=== PATIENT | female | born 1975 | race Caucasian/White ===

== ENCOUNTER 2016-11-17 20:03 | Outpatient (CLI) | payer MEDICAID ==
[~2016-11-17 20:03] MED LIST: ESCI20TA2; QUET50TA
== END 2016-11-18 06:00 | disposition home or self-care (01) ==
LOC: SLEEP 20:03
PROVIDERS: ATTEND Internal Medicine Cardiovascular Disease
DX: G47.33 Obstructive sleep apnea (adult) (pediatric) (principal); I10 Essential (primary) hypertension; R06.83 Snoring
CPT/HCPCS: 95810

== ENCOUNTER → 2017-01-04 | Outpatient (CLI) | payer MEDICAID ==
--- NOTE | 2017-01-04 13:29 | Diagnostic Imaging Report ---
INDICATION: Shortness of breath with wheezing. FINDINGS: There is some discoid atelectasis in the lingula and left lower lobe. The right lung is clear. The heart is not enlarged. There is no air trapping. No hilar adenopathy. No pulmonary edema. IMPRESSION: Mild discoid atelectasis in the left lower lobe and lingula. Dictated by: Dictated on workstation # [id number]
== END ==
LOC: RAD 12:38
PROVIDERS: ATTEND Nurse Practitioner Family
DX: G47.34 Idiopathic sleep related nonobstructive alveolar hypoventilation (principal); R06.02 Shortness of breath; E66.9 Obesity, unspecified; J30.2 Other seasonal allergic rhinitis; Z72.0 Tobacco use
CPT/HCPCS: 71020

== ENCOUNTER → 2017-01-18 | Outpatient (CLI) | payer MEDICAID | LOC: RT 12:47 | PROVIDERS: ATTEND Nurse Practitioner Family | DX: J30.2 Other seasonal allergic rhinitis (principal); R06.02 Shortness of breath; G47.34 Idiopathic sleep related nonobstructive alveolar hypoventilation; Z72.0 Tobacco use | CPT/HCPCS: 94060; 94726; 94729 ==

== ENCOUNTER → 2017-02-21 | Outpatient (CLI) | payer MEDICAID ==
--- NOTE | 2017-02-21 13:24 | Diagnostic Imaging Report ---
Pelvic ultrasound. INDICATION: Pelvic pain. The previous pelvic ultrasound exam of 08/18/2015, failed to show any sign of an acute pelvic abnormality. The left ovary was not visualized on the prior exam, however. On this exam the uterus is nongravid and not enlarged measuring 8.1 x 5.5 x 4.7 cm. The endometrial lining is thickened measuring 11. 0 mm (normal 5.0 mm or less.) This finding is nonspecific however. Correlation with the patient's menstrual cycle would be recommended. There is no focal mass involving the uterus to suggest a fibroid. Neither ovary was identified as the adnexa were obscured by bowel gas. There is no mass or free fluid collection noted. IMPRESSION: 1. There is no evidence for an acute pelvic abnormality, but the adnexa were not well visualized due to overlying bowel gas. 2. If clinical concern regarding an underlying abnormality persists, then CT of the abdomen/pelvis would be recommended for further study. Dictated by: Dictated on workstation # [id number]
== END ==
LOC: RAD 10:59
PROVIDERS: ATTEND Obstetrics & Gynecology
DX: R10.2 Pelvic and perineal pain (principal)
CPT/HCPCS: 76830; 76856

== ENCOUNTER → 2017-03-08 | Outpatient (CLI) | payer MEDICAID ==
--- NOTE | 2017-03-08 17:51 | Diagnostic Imaging Report ---
EXAM: US VENOUS LOWER EXT LT INDICATION: Left leg pain. COMPARISON: None. TECHNIQUE: Duplex, morales-scale and color-flow imaging of the left lower extremity venous system was performed FINDINGS: The left common femoral vein, superficial femoral vein, profunda femoris, and popliteal veins are normal. These vessels show normal compressibility, color flow, and doppler augmentation. The deep calf veins demonstrate no distinct intraluminal thrombus where seen. IMPRESSION: Negative venous Doppler of the left lower extremity. Dictated by: Dictated on workstation # [id number]
== END ==
LOC: RAD 17:00
PROVIDERS: ATTEND Nurse Practitioner Family
DX: M79.605 Pain in left leg (principal)

== ENCOUNTER → 2017-05-01 | Outpatient (CLI) | payer MEDICAID ==
[2017-05-01 12:00] LABS: BASOPHILS % (AUTO) 0 % (0-10); EOSINOPHILS # (AUTO) 0.1 10^3/uL (0.0-0.3); EOSINOPHILS % (AUTO) 1 % (0-10); LYMPHOCYTES % (AUTO) 44 % (12-44); MEAN CORPUSCULAR HEMOGLOBIN 31 PG (25-34); MEAN CORPUSCULAR HGB CONC 34 G/DL (32-36); MEAN CORPUSCULAR VOLUME 90 FL (80-99); MEAN PLATELET VOLUME 10.1 FL (7.4-10.4); MONOCYTES # (AUTO) 0.6 X 10^3 (0.0-1.0); MONOCYTES % (AUTO) 6 % (0-12); NEUTROPHILS # (AUTO) 4.5 X 10^3 (1.8-7.8); NEUTROPHILS % (AUTO) 49 % (42-75); PLATELET COUNT 263 10^3/uL (130-400); RED BLOOD COUNT 4.83 10^6/uL (4.35-5.85); RED CELL DISTRIBUTION WIDTH 14.2 % (10.0-14.5); WHITE BLOOD COUNT 9.1 10^3/uL (4.3-11.0)
--- NOTE | 2017-05-01 12:19 | Diagnostic Imaging Report ---
INDICATION: Bronchitis. COMPARISON: 01/04/2017. FINDINGS: Frontal and lateral radiographic views of the chest were obtained and demonstrate normal cardiac silhouette and pulmonary vasculature. Lungs show low inspiratory volumes. There is bilateral perihilar platelike atelectasis. No focal alveolar consolidation, large effusion, nor pneumothorax is identified. Bony structures show no gross acute abnormalities. IMPRESSION: 1. Low lung volumes with bilateral perihilar plate-like atelectasis. 2. No evidence of failure or focal infiltrate. Dictated by: Dictated on workstation # [id number]
== END ==
LOC: RAD 11:24
PROVIDERS: ATTEND Nurse Practitioner Family
DX: J98.11 Atelectasis (principal); R06.02 Shortness of breath
CPT/HCPCS: 36415; 71020; 85025

== ENCOUNTER → 2017-07-19 | Outpatient (CLI) | payer MEDICAID ==
--- NOTE | 2017-07-19 12:05 | Diagnostic Imaging Report ---
PROCEDURE: US Thyroid. TECHNIQUE: Multiple real-time grayscale images were obtained of the thyroid in various projections. INDICATION: Thyroid nodules. No prior studies are available for comparison. FINDINGS: The right lobe of the thyroid measures 5.0 x 2.4 x 2.5 cm and the left lobe measures 4.6 x 1.7 x 1.8 cm. There are multiple, rounded solid masses within both lobes of the thyroid gland. Largest mass on the left is in the lower pole measuring 1.9 x 1.1 x 1.2 cm. The mass on the right measures 3.8 x 2.3 x 2.0 cm, contains mixed solid and cystic components. There appeared to be calcifications present as well. The isthmus is 6 mm in thickness. IMPRESSION: Multiple bilateral thyroid nodules. The dominant mass is located on the right, as described. Fine-needle aspiration could be performed. Dictated by: Dictated on workstation # [id number]
== END ==
LOC: RAD 10:28
PROVIDERS: ATTEND Nurse Practitioner Family
DX: E04.2 Nontoxic multinodular goiter (principal)
CPT/HCPCS: 76536

== ENCOUNTER → 2017-08-05 | Outpatient (CLI) | payer MEDICAID ==
[~2017-08-05] VITALS: Ht 157.5 cm; Wt 89.8 kg
[~2017-08-05] MED LIST changes: +LIDOCAINE 1% INJ 20 ML (XYLOCAINE) VIAL INJ ONE; +LIDOCAINE 1% INJ 50 ML (XYLOCAINE) VIAL ONE
[2017-08-05 10:20] VITALS: BP 121/74
[2017-08-05 10:44] VITALS: BP 118/74
--- NOTE | 2017-08-05 12:30 | Diagnostic Imaging Report ---
INDICATION: Right lobe thyroid nodule. The patient presents for fine needle aspiration. TECHNIQUE: The patient was brought to the procedure room and placed on the table in the supine position. Ultrasound imaging over the right neck was performed to evaluate for an appropriate entry site. The right neck was then prepped and draped in the usual sterile fashion and a small amount of 1% lidocaine was utilized for local anesthesia. A total of three passes was made with a 25-gauge needle into the dominant solid mass in the right lobe of the thyroid gland. Fine needle aspiration was performed. Hemostasis was obtained using manual compression. The patient tolerated the procedure well and left the Department in stable condition. IMPRESSION: Successful ultrasound-guided fine-needle aspiration of the solid dominant nodule in the right lobe of the thyroid gland. The Pathology results are currently pending. Dictated by: Dictated on workstation # [id number]
== END ==
LOC: RAD 09:57
PROVIDERS: ATTEND Nurse Practitioner Family
DX: E04.1 Nontoxic single thyroid nodule (principal)
CPT/HCPCS: 76942

== ENCOUNTER → 2017-11-06 | Outpatient (CLI) | payer MEDICAID ==
[~2017-11-06] MED LIST changes: -LIDOCAINE 1% INJ 20 ML (XYLOCAINE) VIAL INJ ONE; -LIDOCAINE 1% INJ 50 ML (XYLOCAINE) VIAL ONE
== END ==
LOC: CARD 10:16
PROVIDERS: ATTEND Physician Assistant
DX: R06.09 Other forms of dyspnea (principal); I10 Essential (primary) hypertension; E78.2 Mixed hyperlipidemia; R51 Headache; N80.9 Endometriosis, unspecified
CPT/HCPCS: 93017

== ENCOUNTER 2017-12-26 13:26 | Outpatient (CLI) | payer MEDICAID ==
[~2017-12-26] VITALS: Ht 157.5 cm; Wt 89.4 kg
[2017-12-26 13:47] VITALS: BP 134/88
[2017-12-26 14:24] LABS: BASOPHILS % (AUTO) 0 % (0-10); EOSINOPHILS # (AUTO) 0.1 10^3/uL (0.0-0.3); EOSINOPHILS % (AUTO) 1 % (0-10); HEMATOCRIT 40 % (35-52); HEMOGLOBIN 14.4 G/DL (11.5-16.0); LYMPHOCYTES # (AUTO) 3.2 X 10^3 (1.0-4.0); LYMPHOCYTES % (AUTO) 35 % (12-44); MEAN CORPUSCULAR HEMOGLOBIN 32 PG (25-34); MEAN CORPUSCULAR HGB CONC 36 G/DL (32-36); MEAN CORPUSCULAR VOLUME 89 FL (80-99); MEAN PLATELET VOLUME 10.5 FL (7.4-10.4); MONOCYTES # (AUTO) 0.4 X 10^3 (0.0-1.0); MONOCYTES % (AUTO) 5 % (0-12); NEUTROPHILS # (AUTO) 5.5 X 10^3 (1.8-7.8); NEUTROPHILS % (AUTO) 60 % (42-75); PLATELET COUNT 252 10^3/uL (130-400); RED BLOOD COUNT 4.51 10^6/uL (4.35-5.85); RED CELL DISTRIBUTION WIDTH 13.8 % (10.0-14.5); WHITE BLOOD COUNT 9.3 10^3/uL (4.3-11.0)
[2017-12-26 14:26] LABS: BILIRUBIN,URINE NEGATIVE (NEGATIVE); CLARITY,URINE CLEAR; COLOR,URINE YELLOW; GLUCOSE, URINE (UA) NEGATIVE (NEGATIVE); KETONES,URINE NEGATIVE (NEGATIVE); LEUKOCYTE ESTERASE ,URINE 1+ (NEGATIVE); NITRITE,URINE NEGATIVE (NEGATIVE); PH,URINE 6 (5-9); PROTEIN,URINE 1+ (NEGATIVE); UROBILINOGEN,URINE NORMAL (NORMAL)
[2017-12-26] MEDS ORDERED: CETI10TA17 PO (14:34)
[2017-12-26] MEDS ORDERED: NF-NORETH5 PO (14:34)
[2017-12-26] MEDS ORDERED: TOPI100T11 PO (14:34)
[2017-12-26] MEDS ORDERED: MONT10TA24 PO (14:34)
[2017-12-26] MEDS ORDERED: CLOP75TA28 PO (14:34)
[2017-12-26] MEDS ORDERED: TRAM50TA2 PO (14:34)
[2017-12-26] MEDS ORDERED: PRAZ1CAP2 PO (14:34)
[2017-12-26] MEDS ORDERED: DULO60CA58 PO (14:34)
[2017-12-26] MEDS ORDERED: ROPI2TAB4 PO (14:34)
[2017-12-26 14:35] LABS: BACTERIA,URINE LARGE /HPF; WBC,URINE 0-2 /HPF
[2017-12-26 14:49] LABS: PROTHROMBIN TIME PATIENT 13.1 SEC (12.2-14.7)
[2017-12-31] MEDS ORDERED: SIME80TA16 PO (16:18)
[2017-12-31] MEDS ORDERED: IBUP-844 PO (16:18)
[2017-12-31] MEDS ORDERED: MAG30ORA2 PO (16:18)
[2017-12-31] MEDS ORDERED: HYDR-34 PO (16:18)
[2017-12-31] MEDS ORDERED: DOCU100C37 PO (16:18)
== END 2017-12-26 14:15 | disposition home or self-care (01) ==
LOC: PREOP 13:26
PROVIDERS: ATTEND Obstetrics & Gynecology
DX: Z01.812 Encounter for preprocedural laboratory examination (principal); Z11.2 Encounter for screening for other bacterial diseases
CPT/HCPCS: 36415; 81000; 85025; 85610; 86850; 86900; 86901; 87081

== ENCOUNTER 2017-12-31 06:05 | Day surgery (SDC) | payer MEDICAID ==
[~2017-12-31] VITALS: Ht 157.5 cm; Wt 89.4 kg
[~2017-12-31 06:05] MED LIST changes: +CETI10TA17 PO; +CLOP75TA28 PO; +DULO60CA58 PO; +MONT10TA24 PO; +NF-NORETH5 PO; +PRAZ1CAP2 PO; +ROPI2TAB4 PO; +TOPI100T11 PO; +TRAM50TA2 PO
--- OUTSIDE RECORDS SUMMARY | 2017-12-31 06:09 | XMS REPORT ---
Author Author TACO CHEUNG [facility] Address [address] [place] [address] Care Team Providers Care Handle Maker Name Role Phone TACO CHEUNG Unavailable PROBLEMS Type Condition ICD9-CM Code WJB76-SC Code Onset Dates Condition Status SNOMED Code Problem Lumbar back pain M54.5 Active 950848607 Problem Tobacco use Z72.0 Active 635612475 Problem Hot flashes N95.1 Active 816096378 Problem Dyspnea, unspecified R06.00 Active 317039728 Problem Mixed hyperlipidemia E78.2 Active 520632884 Problem Essential hypertension I10 Active 76967808 Problem Headache, chronic daily R51 Active 296532323 Problem Multiple thyroid nodules E04.2 Active 138105674 Problem Coronary artery disease involving makah coronary artery of makah heart without angina pectoris I25.10 Active 1149473758164 Problem BMI 35.0-35.9,adult Z68.35 Active 352247613 Problem History of endometriosis Z87.42 Active 809864611 Problem Dysmenorrhea N94.6 Active 746703399 Problem Chronic headache R51 Active 047051382 ALLERGIES No Information ENCOUNTERS Encounter Location Date Diagnosis [place] [address] [address] Sep, [place] [id number] [place] [id number] [place] [address] Aug, Multiple thyroid nodules E04.2 [place] [address] [place] [address]- 9310 Jul, Multiple thyroid nodules E04.2 [place] [address] [place] [address]- 1657 Jun, H/O cerebral artery stenosis Z86.79 and Multiple thyroid nodules E04.2 [place] [address] [place] [address]70[address]- [address] May, [facility] [address] [place] [id number] [place] [address] Feb, Left leg pain M79.605 [place] [address] [place] [id number] [place] [address]- [address]235 Jan, [place] [address] [address] Jan, Dysmenorrhea N94.6 and Coronary artery disease involving makah coronary artery of makah heart without angina pectoris I25.10 [facility] [place] [address] [address] Sep, Brown recluse spider bite, accidental or unintentional, initial encounter T63.331A [address] [address] Nov, Tobacco abuse Z72.0 ; Essential hypertension I10 ; Mixed hyperlipidemia E78.2 ; Headache, chronic daily R51 ; Weakness R53.1 ; Lumbar back pain M54.5 and Ingrowing toenail with infection L60.0 [place] [id number] [place] [address]78- 3408 Aug, Tobacco abuse Z72.0 ; Essential hypertension I10 ; Mixed hyperlipidemia E78.2 ; Headache, chronic daily R51 ; Weakness R53.1 ; Dyspnea, unspecified R06.00 and Lumbar back pain M54.5 [place] [id number] [place] [address] 97289- 1187 Aug, Well woman exam Z01.419 ; Encounter for immunization Z23 ; Encounter for screening for malignant neoplasm of cervix Z12.4 ; Essential hypertension I10 ; Hypercholesteremia E78.0 ; History of endometriosis Z87.42 ; BMI 35.0-35.9,adult Z68.35 ; Other fatigue R53.83 ; Chills (without fever) R68.83 ; Chronic headache R51 ; Pelvic pain R10.2 ; Chest pain, unspecified R07.9 ; Alternating constipation and diarrhea R19.8 ; Hot flashes N95.1 ; Abdominal bloating R14.0 ; Uterine tenderness N94.9 ; Tobacco use Z72.0 ; History of fall Z91.81 and History of dyspareunia in female Z87.42 [place] [address] [place] [id number] [place] [address]42- 17[address] Jul, Essential hypertension I10 ; Mixed hyperlipidemia E78.2 ; Headache, chronic daily R51 ; Weakness R53.1 ; Dyspnea, unspecified R06.00 ; Lumbar back pain M54.5 and Oral contraceptive pill surveillance Z30.41 [place] [address] [address]40[address]- [address] Jun, Essential hypertension I10 and Weakness R53.1 [place] [address] [address]- [address] Jun, Essential hypertension I10 ; Mixed hyperlipidemia E78.2 ; Headache, chronic daily R51 ; Weakness R53.1 and Dyspnea, unspecified R06.00 [place] [address] [address] May, [place] [address] [place] [id number] Feb, Paresthesia of upper and lower extremities of both sides 782.0 and Headache 784.0 [place] [address] [address] Jan, [place] [address] [address] Jan, Paresthesia of upper and lower extremities of both sides 782.0 and Headache 784.0 [place] [address] [address]- [address] Jan, Hyperlipidemia 272.4 ; Essential hypertension, benign 401.1 ; Headache 784.0 ; Depression 311 and Diarrhea 787.91 [place] [address] [place] [address] Jan, [facility] [address] [place] [id number] [place] [address] 60[address]- [address]99 Jan, Hyperlipidemia 272.4 ; Essential hypertension, benign 401.1 ; Headache 784.0 ; Depression 311 and Diarrhea 787.91 [facility] [address] [place] [id number] [place] [address] 92709- 8226 Dec, Irregular menses 626.4 [facility] [address] [place] [id number] [place] [address] 35862- 4915 Dec, Hyperlipidemia 272.4 ; Essential hypertension, benign 401.1 ; Headache 784.0 ; Depression 311 and Irregular menstrual cycle 626.4 [facility] [address] [place] [id number] [place] [address] 56084- 5697 Nov, Headache 784.0 ; Posttraumatic stress disorder 309.81 ; Encounter for long-term (current) use of other medications V58.69 ; Edema 782.3 and Fatigue 780.79 [facility] [address] [place] [id number] [place] [address] 22128- 1827 Nov, [facility] [address] [place] [id number] [place] [address] 26405- 6609 October, [facility] [address] [place] [id number] [place] [address] 53336- 0251 Sep, [facility] [address] [place] [id number] [place] [address] 74279- 4281 Sep, [facility] [address] [place] [id number] [place] [address] 59657- 8191 Jun, [facility] [address] [place] [id number] [place] [address] 519839- 6120 Jun, [facility] [address] [place] [id number] [place] [address] 142197- 9776 Jun, [facility] [address] [place] [id number] [place] [address] 30408- 6257 Jun, [facility] [place] [facility] [address] [id number] [place] [address] 15 May, 2014 [facility] [place] [facility] [address] [id number] [place] [address]- [address] May, [facility] [place] [facility] [address] [id number] [place] [address]- 8206 15 May, 2014 [facility] [place] [facility] [address] [id number] [place] [address]- 6936 May, [facility] [place] [facility] [address] [id number] [place] [address]- 1660 May, [facility] [place] [facility] [address] [id number] [place] [address]- 8547 May, [facility] [place] [facility] [address] [id number] [place] [address]- 2568 Apr, [facility] [place] [facility] [address] [id number] [place] [address]- 3130 Apr, [facility] [place] [facility] [address] [id number] [place] [address]- 5071 Jan, [facility] [place] [facility] [address] [id number] [place] [address]- 4439 Jan, [facility] [place] [facility] [address] [id number] [place] [address]- 3027 Jan, [facility] [place] [facility] [address] [id number] [place] [address]- 6353 Jan, [facility] [place] [facility] [address] [id number] [place] [address]- 1941 Jan, [facility] [place] [facility] [address] [id number] [place] [address] Dec, [facility] [place] [facility] [address] [id number] [place] [address] Dec, [facility] [place] [facility] [address] [id number] [place] [address]- 9691 Dec, [facility] [address] [id number] [place] [address]- 8082 Dec, [facility] [place] [facility] [address] [id number] [place] [address]- 8698 October, [facility] [place] [facility] [address] [id number] [place] [address]- 1063 October, [facility] [place] [facility] [address] [id number] [place] [address]- 1438 October, [facility] [place] [facility] [address] [id number] [place] [address]- 5711 October, [facility] [place] [facility] [address] [id number] [place] [address]- 5635 October, [facility] [place] [facility] [address] [id number] [place] [address]- 7698 October, [facility] [place] [facility] [address] [id number] [place] [address]- 5668 October, [facility] [place] [facility] [address] [id number] [place] [address]- 3079 October, [facility] [place] [facility] [address] [id number] [place] [address]- 9568 Sep, [facility] [place] [facility] [address] [id number] [place] [address]- 9574 Sep, [facility] [place] [facility] [address] [id number] [place] [address]- 0556 Sep, [facility] [place] [facility] [address] [id number] [place] [address]- 5124 Sep, [facility] [place] [facility] [address] [id number] [place] [address]- 9211 Sep, [facility] [place] [facility] [address] [id number] [place] [address]- 9296 Sep, [facility] [place] [facility] [address] [place] [id number] [address] Aug, [facility] [address] [address] Aug, [facility] [address] [address]- 14[address] Aug, [facility] [address] [address]- 9[address] Aug, [facility] [address] [address]- 160[address] Aug, [facility] [address] [address]- 9760 Aug, [facility] [address] [address]- [address] Aug, [facility] [address] [address]- [address] Aug, IMMUNIZATIONS No Known Immunizations SOCIAL HISTORY Never Assessed REASON FOR VISIT Update Med List/lab deferred PLAN OF CARE VITAL SIGNS MEDICATIONS Medication Instructions Dosage Frequency Start Date End Date Duration Status Fish Oil 1000 MG Orally bid 2 capsule 12h 30 day(s) Active Multi Vitamin Daily Orally Once a day 1 tablet 24h Active Atorvastatin Calcium 40 mg Orally Once a day 1 tablet 24h Active Arnuity Ellipta 100 MCG/ACT Inhalation Once a day 1 puff 24h Active Sertraline HCl 100 MG Orally at bedtime 2 tablets Active ProAir HFA 108 (90 Base) MCG/ACT Inhalation every 4 hrs 2 puffs as needed 4h Active Tramadol HCl 50 mg Orally 3 times a day,PRN 1 tablet as needed Active Topamax 100 MG Orally Twice a day 1 tablet 12h Active BuPROPion HCl 150 MG Orally 2 times a day 1 tablet 12h Active Oxygen Active Ropinirole HCl 2 MG Orally three times a day 1 tablet 8h Active Prazosin HCl 2 MG Orally Once a day 1 capsule at bedtime 24h Active RESULTS No Results PROCEDURES No Known procedures INSTRUCTIONS MEDICATIONS ADMINISTERED No Known Medications MEDICAL (GENERAL) HISTORY Type Description Date Medical History HYPERTENSION Medical History HYPERLIPIDEMIA Medical History HEADACHE SYNDROMES Migraine Medical History PSYCHIATRIC DISORDERS- BIPOLAR, PTSD Medical History FX RIGHT KNEE CAP Medical History carotid artery stenosis--mild--dx by Dr. Garcias in 2016 Medical History 06/18/2017--normal echocardiogram Medical History Thyroid fine Needle Aspiration Consistent with benign thyroid nodule w cystic degeneration Surgical History SURGICAL LYSIS OF INTESTINAL ADHESIONS Surgical History APPENDECTOMY Surgical History SECTION X1 Hospitalization History surgeries Hospitalization History sleep study Hospitalization History migraine/ possible mini stroke 06/2017
--- OUTSIDE RECORDS SUMMARY | 2017-12-31 06:09 | XMS REPORT | Clinical Summary ---
Author Author [facility] Organization [facility] Address Unknown Phone Unavailable Care Team Providers Care Sped Teacher Name Role Phone Sandra Prater Unavailable Nehemiah Martinez MD Unavailable Jenny Bedoya DO Unavailable Unavailable Uma Weeks PCP Source Comments Some departments are not documenting in the electronic medical record. If you do not see the information that you expected, contact Release of Information in the Health Information Management department at [phone] for further assistance in locating additional records.[facility] Allergies Active Allergy Reactions Severity Noted Date Comments Aspirin RASH, SHORTNESS OF BREATH Medium 09/02/2015 Current Medications Prescription Sig. Disp. Refills Start End Date Status Date escitalopram oxalate Take 20 mg by mouth Active (LEXAPRO) 20 mg tablet daily. topiramate (TOPAMAX) 25 Take 50 mg by mouth twice Active mg tablet daily. atorvastatin (LIPITOR) 40 Take 40 mg by mouth Active mg tablet daily. CYCLOBENZAPRINE HCL Take 10 mg by mouth as Active (CYCLOBENZAPRINE PO) Needed. propranolol (INDERAL) 60 Take 60 mg by mouth twice Active mg tablet daily. hydrochlorothiazide Take 25 mg by mouth as Active (HYDRODIURIL) 25 mg Needed. tablet MULTIVITAMINS WITH Take by mouth. Active FLUORIDE (MULTI-VITAMIN PO) FLAXSEED OIL (OMEGA 3 PO) Take by mouth daily. Active QUEtiapine (SEROQUEL) 25 Take 25 mg by mouth twice Active mg tablet daily. SERTRALINE HCL Take 150 mg by mouth Active (SERTRALINE PO) daily. traMADol (ULTRAM) 50 mg Take 50 mg by mouth every Active tablet 6 hours as needed for Pain. NON-FORMULARYIndications: 1 Tab twice daily. Active restless leg Indications: restless leg Active Problems Problem Noted Date ERRONEOUS ENCOUNTER--DISREGARD 05/18/2016 Family History Medical History Relation Name Comments Cancer Father Heart Attack Father Hypertension Father Diabetes Mother Hypertension Mother Relation Name Status Comments Father Alive Maternal Grandfather Maternal Grandmother Mother Alive Paternal Grandfather Paternal Grandmother Social History Tobacco Use Types Packs/Day Years Used Date Current Every Day Smoker Cigarettes 1 20 Alcohol Use Drinks/Week oz/Week Comments No 0 Standard 0.0 drinks or equivalent Sex Assigned at Date Recorded Not on file Last Filed Vital Signs Vital Sign Reading Time Taken Blood Pressure 133/85 05/18/2016 1:17 PM DISTRICT DIRECTOR Pulse 85 05/18/2016 1:17 PM DISTRICT DIRECTOR Temperature 36.4 C (97.6 F) 05/18/2016 1:17 PM DISTRICT DIRECTOR Respiratory Rate 16 05/18/2016 1:17 PM DISTRICT DIRECTOR Oxygen Saturation 98% 05/18/2016 1:17 PM DISTRICT DIRECTOR Inhaled Oxygen - - Concentration Weight 88.5 kg (195 lb) 05/18/2016 1:17 PM DISTRICT DIRECTOR Height 157.5 cm (5' 2") 05/18/2016 1:17 PM DISTRICT DIRECTOR Body Mass Index 35.67 05/18/2016 1:17 PM DISTRICT DIRECTOR Plan of Treatment Health Maintenance Due Date Last Done Comments PHYSICAL (COMPREHENSIVE) 1984 EXAM PERTUSSIS VACCINE 1988 HIV SCREENING 1992 TETANUS VACCINE 1994 CERVICAL CANCER SCREENING 2007 BREAST CANCER SCREENING 2017 INFLUENZA VACCINE 03/17/2018 Results Not on filefrom Last 3 Months
--- OUTSIDE RECORDS SUMMARY | 2017-12-31 06:10 | XMS REPORT ---
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 Problem Hyperlipidemia 272.4 Active Problem Posttraumatic stress disorder 309.81 Active Problem Encounter for long-term (current) use of other medications V58.69 Active Problem Edema 782.3 Active Problem Essential hypertension, benign 401.1 Active Medications Medication Code System Code Instructions Start Date End Date Status Dosage Propranolol HCl [facility] [address]-02 60 MG Orally Once a day 1 tablet Multi Vitamin Daily [facility] [address] Orally Once a day 1 tablet Lexapro [facility] [address]-54 20 MG Orally Once a day TAKE ONE TABLET BY MOUTH DAILY (MUST HAVE APPOINTMENT FOR REFILL) Hydrochlorothiazide [facility] [address]-46 25 mg 1 tablet by Oral route 1 time per day PRN B Complex [facility] [address]-35 Orally not defined Topamax [facility] [address]-78 50 MG Orally Twice a day 1 tablet Ortho Micronor [facility] [address]-77 0.35 MG Orally Once a day January 11, 2015 1 tablet Atorvastatin Calcium [facility] [address]-88 40 MG Orally Once a day 1 tablet Procedures Procedure Coding System Code Date Office Visit, Est Pt., Level 3 CPT-4 16932 Mar 16, 2015 Vital Signs Date/Time: Mar 16, 2015 Temperature 97.7 F Weight 187.1 lbs Height 62 in BMI 34.22 Index Blood Pressure Diastolic 80 mmHg Blood Pressure Systolic 116 mmHg Cardiac Monitoring Heart Rate 80 bpm Results No Known Results Summary Purpose [employer] Submission
--- OUTSIDE RECORDS SUMMARY | 2017-12-31 06:10 | XMS REPORT ---
Author Author TACO CHEUNG [facility] Address [address] [place] [address] Care Team Providers Care Stockroom Helper Name Role Phone TACO CHEUNG Unavailable PROBLEMS Type Condition ICD9-CM Code XUX64-GV Code Onset Dates Condition Status SNOMED Code Problem Lumbar back pain M54.5 Active 859587597 Problem Tobacco use Z72.0 Active 029993104 Problem Hot flashes N95.1 Active 958837970 Problem Dyspnea, unspecified R06.00 Active 578559821 Problem Mixed hyperlipidemia E78.2 Active 208110216 Problem Essential hypertension I10 Active 60908264 Problem Headache, chronic daily R51 Active 467341115 Problem Multiple thyroid nodules E04.2 Active 199672518 Problem Coronary artery disease involving [place] coronary artery of [place] heart without angina pectoris I25.10 Active 3852435049166 Problem BMI 35.0-35.9,adult Z68.35 Active 129431573 Problem History of endometriosis Z87.42 Active 991054595 Problem Dysmenorrhea N94.6 Active 747220892 Problem Chronic headache R51 Active 273508122 ALLERGIES No Information ENCOUNTERS Encounter Location Date Diagnosis [place] [address], [place] [address] Sep, [place] [address] [place] [id number] [place] [address] 74633- 9783 Aug, Multiple thyroid nodules E04.2 [place] [address] [place] [address] 62027- 6071 Jul, Multiple thyroid nodules E04.2 [place] [address] [place] [address] 93517- 1473 Jun, H/O cerebral artery stenosis Z86.79 and Multiple thyroid nodules E04.2 [place] [address] [place] [address] 51201- 5463 May, [facility] WALK IN [facility] [address] [id number] [place] [address] 21143 -8418 Feb, Left leg pain M79.605 [place] [address] [place] [id number] [place] [address] 08766- 6361 Jan, [place] [address] [address]- [address] Jan, Dysmenorrhea N94.6 and Coronary artery disease involving [place] coronary artery of [place] heart without angina pectoris I25.10 [facility] WALK IN [place] [address] [address] Sep, Brown recluse spider bite, accidental or unintentional, initial encounter T63.331A [address] [address]- 1358 Nov, Tobacco abuse Z72.0 ; Essential hypertension I10 ; Mixed hyperlipidemia E78.2 ; Headache, chronic daily R51 ; Weakness R53.1 ; Lumbar back pain M54.5 and Ingrowing toenail with infection L60.0 [place] [id number] [place] [address] 40982- 4847 Aug, Tobacco abuse Z72.0 ; Essential hypertension I10 ; Mixed hyperlipidemia E78.2 ; Headache, chronic daily R51 ; Weakness R53.1 ; Dyspnea, unspecified R06.00 and Lumbar back pain M54.5 [place] [id number] [place] [address] 03026- 8836 Aug, Well woman exam Z01.419 ; Encounter [...] and History of dyspareunia in female Z87.42 [place] [address] [place] [id number] [place] [address] 06565- 5013 Jul, Essential hypertension I10 ; Mixed hyperlipidemia E78.2 ; Headache, chronic daily R51 ; Weakness R53.1 ; Dyspnea, unspecified R06.00 ; Lumbar back pain M54.5 and Oral contraceptive pill surveillance Z30.41 [place] [address] 836107- 1984 Jun, Essential hypertension I10 and Weakness R53.1 [place] [address] 10337- 8561 Jun, Essential hypertension I10 ; Mixed hyperlipidemia E78.2 ; Headache, chronic daily R51 ; Weakness R53.1 and Dyspnea, unspecified R06.00 [place] [address] 64187- 5569 May, [place] [address] [place] [address]83- 2628 Feb, Paresthesia of upper and lower extremities of both sides 782.0 and Headache 784.0 [place] [address] 57[address]- 8374 Jan, [place] [address] 03524- 2507 Jan, Paresthesia of upper and lower extremities of both sides 782.0 and Headache 784.0 [place] [address] 33621- 8010 Jan, Hyperlipidemia 272.4 ; Essential hypertension, benign 401.1 ; Headache 784.0 ; Depression 311 and Diarrhea 787.91 [place] [address] [place] [address]- 7020 Jan, [facility] [address] [place] [id number] [place] [address] 46217- 5076 Jan, Hyperlipidemia 272.4 ; Essential hypertension, benign 401.1 ; Headache 784.0 ; Depression 311 and Diarrhea 787.91 [facility] [address] [place] [id number] [place] [address] 02973- 7629 Dec, Irregular menses 626.4 [facility] [address] [place] [address] [id number] [place] [address] 81592- 4487 Dec, Hyperlipidemia 272.4 ; Essential hypertension, benign 401.1 ; Headache 784.0 ; Depression 311 and Irregular menstrual cycle 626.4 [facility] [address] [place] [id number] [place] [address] 72599- 9104 Nov, Headache 784.0 ; Posttraumatic stress disorder 309.81 ; Encounter for long-term (current) use of other medications V58.69 ; Edema 782.3 and Fatigue 780.79 [facility] [address] [place] [id number] [place] [address] 34762- 3191 Nov, [facility] [address] [place] [address] [id number] [place] [address] 35623- 8350 October, [facility] [address] [place] [id number] [place] [address] 29161- 7085 Sep, [facility] [address] [place] [address] [id number] [place] [address] 03872- 5227 Sep, [facility] [address] [place] [id number] [place] [address] 32744- 8114 Jun, [facility] [address] [place] [address] [id number] [place] [address] 685259- 9991 Jun, [facility] [address] [place] [id number] [place] [address] 128585- 9586 Jun, [facility] [address] [place] [address] [id number] [place] [address] 55782- 8877 Jun, [facility] [place] [facility] [address] [id number] [place] [address]- 4654 15 May, 2014 [facility] [place] [facility] [address] [id number] [place] [address]- 2112 May, [facility] [place] [facility] [address] [id number] [place] [address]- 4642 15 May, 2014 [facility] [place] [facility] [address] [id number] [place] [address]- 2690 May, [facility] [place] [facility] [address] [id number] [place] [address]- 8298 May, [facility] [place] [facility] [address] [id number] [place] [address]- 7003 May, [facility] [place] [facility] [address] [id number] [place] [address]- 4791 Apr, [facility] [place] [facility] [address] [id number] [place] [address]- 1613 Apr, [facility] [place] [facility] [address] [id number] [place] [address]- 6535 Jan, [facility] [place] [facility] [address] [id number] [place] [address]- 2131 Jan, [facility] [place] [facility] [address] [id number] [place] [address]- 5764 Jan, [facility] [place] [facility] [address] [id number] [place] [address]- 4920 Jan, [facility] [place] [facility] [address] [id number] [place] [address]- 7831 Jan, [facility] [place] [facility] [address] [id number] [place] [address] Dec, [facility] [place] [facility] [address] [id number] [place] Dec, [facility] [place] [facility] [address] [id number] [place] [address]- 4045 Dec, [facility] [address] [id number] [place] [address]- 8905 Dec, [facility] [place] [facility] [address] [id number] [place] [address]- 7276 October, [facility] [place] [facility] [address] [id number] [place] [address]- 4021 October, [facility] [place] [facility] [address] [id number] [place] [address]- 2948 October, [facility] [place] [facility] [address] [id number] [place] [address]- 8696 October, [facility] [place] [facility] [address] [id number] [place] [address]- 2745 October, [facility] [place] [facility] [address] [id number] [place] [address]- 2767 October, [facility] [place] [facility] [address] [id number] [place] [address]- 7616 October, [facility] [place] [facility] [address] [id number] [place] [address]- 6205 October, [facility] [place] [facility] [address] [id number] [place] [address]- 4274 Sep, [facility] [place] [facility] [address] [id number] [place] [address]- 4699 Sep, [facility] [place] [facility] [address] [id number] [place] [address]- 2827 Sep, [facility] [place] [facility] [address] [id number] [place] [address]- 8729 Sep, [facility] [place] [facility] [address] [id number] [place] [address]- 5013 Sep, [facility] [place] [facility] [address] [id number] [place] [address]- 4409 Sep, [facility] [place] [facility] [address] [place] [id number], [place] [address]- 1037 31 Aug, 2013 [facility] [address], [place] [address]- 6241 31 Aug, 2013 [facility] [address], [place] [address]- 5255 Aug, [facility] [address], [place] [address]- 0683 Aug, [facility] [address], [place] [address]- 0554 Aug, [facility] [address], [place] [address]- 7642 Aug, [facility] [address], [place] [address]- 0401 Aug, [facility] [address], [place] [address]- 4263 Aug, IMMUNIZATIONS No Known Immunizations SOCIAL HISTORY Never Assessed REASON FOR VISIT Refill Request PLAN OF CARE VITAL SIGNS MEDICATIONS Medication Instructions Dosage Frequency Start Date End Date Duration Status Atorvastatin Calcium 40 mg Orally Once a day 1 tablet 24h Active RESULTS No Results PROCEDURES No [...]
--- OUTSIDE RECORDS SUMMARY | 2017-12-31 06:10 | XMS REPORT ---
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
--- OUTSIDE RECORDS SUMMARY | 2017-12-31 06:10 | XMS REPORT ---
Author Author SHANTE SEAY [facility] Address [address] [place] [address] Care Team Providers Care Ict Sales Representative Name Role Phone SHANTE SEAY Unavailable PROBLEMS Type Condition ICD9-CM Code SCQ72-YS Code Onset Dates Condition Status SNOMED Code Problem Lumbar back pain M54.5 Active 368846446 Problem Tobacco use Z72.0 Active 773821552 Problem Hot flashes N95.1 Active 420582963 Problem Dyspnea, unspecified R06.00 Active 400104791 Problem Mixed hyperlipidemia E78.2 Active 692755654 Problem Essential hypertension I10 Active 54463521 Problem Headache, chronic daily R51 Active 357418561 Problem Multiple thyroid nodules E04.2 Active 143111278 Problem Coronary artery disease involving [place] coronary artery of [place] heart without angina pectoris I25.10 Active 7682958650407 Problem BMI 35.0-35.9,adult Z68.35 Active 457754881 Problem History of endometriosis Z87.42 Active 377331246 Problem Dysmenorrhea N94.6 Active 861215013 Problem Chronic headache R51 Active 242864665 ALLERGIES Substance Reaction Event Type Date Status Aspirin Unknown Drug Allergy Feb, Active latex Unknown Non Drug Allergy Feb, Active ENCOUNTERS Encounter Location Date Diagnosis [facility] [id number], [place] [address]- 79[address] Sep, [facility] [address] [place] [id number] [address]- 0325 Aug, Multiple thyroid nodules E04.2 [facility] [address] [place] [address] 49129- 7677 Jul, Multiple thyroid nodules E04.2 [facility] [address] [place] [id number], [place] [address]- 0224 Jun, H/O cerebral artery stenosis Z86.79 and Multiple thyroid nodules E04.2 [place] [address] [place] [id number] [place] [address] 69066- 6238 May, [facility] WALK IN [place] [address] [place] [id number] [place] [address] 78699 -3851 Feb, Left leg pain M79.[address] [address]- 7036 Jan, [place] [address] [address]- 3650 Jan, Dysmenorrhea N94.6 and Coronary artery disease involving [place] coronary artery of [place] heart without angina pectoris I25.10 [facility] IN [place] [address] [place] [address] [place] [address] 24686 -8692 Sep, Brown recluse spider bite, accidental or unintentional, initial encounter T63.331A [place] [address] [address]- 3024 Nov, Tobacco abuse Z72.0 ; Essential hypertension I10 ; Mixed hyperlipidemia E78.2 ; Headache, chronic daily R51 ; Weakness R53.1 ; Lumbar back pain M54.5 and Ingrowing toenail with infection L60.0 [place] [id number] [place] [address] 08117- 3327 Aug, Tobacco abuse Z72.0 ; Essential hypertension I10 ; Mixed hyperlipidemia E78.2 ; Headache, chronic daily R51 ; Weakness R53.1 ; Dyspnea, unspecified R06.00 and Lumbar back pain M54.5 [place] [id number] [place] [address] 80770- 0549 Aug, Well woman exam Z01.419 ; Encounter [...] and History of dyspareunia in female Z87.42 [place] [id number]- 1645 Jul, Essential hypertension I10 ; Mixed hyperlipidemia E78.2 ; Headache, chronic daily R51 ; Weakness R53.1 ; Dyspnea, unspecified R06.00 ; Lumbar back pain M54.5 and Oral contraceptive pill surveillance Z30.[address] 36[address]- 8912 Jun, Essential hypertension I10 and Weakness R53.[address] 62616- 6612 Jun, Essential hypertension I10 ; Mixed hyperlipidemia E78.2 ; Headache, chronic daily R51 ; Weakness R53.1 and Dyspnea, unspecified R06.[address] 73735- 2631 May, [address] 78769- 6695 Feb, Paresthesia of upper and lower extremities of both sides 782.0 and Headache 784.[address] 65527- 9973 Jan, [address] 22235- 2180 Jan, Paresthesia of upper and lower extremities of both sides 782.0 and Headache 784.[address] 51464- 8937 Jan, Hyperlipidemia 272.4 ; Essential hypertension, benign 401.1 ; Headache 784.0 ; Depression 311 and Diarrhea 787.91 [facility] [address] [place] [address] 64157- 2418 Jan, [facility] [address] [place] [id number] [place] [address] 62124- 6500 Jan, Hyperlipidemia 272.4 ; Essential hypertension, benign 401.1 ; Headache 784.0 ; Depression 311 and Diarrhea 787.91 [facility] [address] [place] [id number] [place] [address] 95623- 8031 Dec, Irregular menses 626.4 [facility] [address] [place] [address] [place] [address] 82302- 4130 Dec, Hyperlipidemia 272.4 ; Essential hypertension, benign 401.1 ; Headache 784.0 ; Depression 311 and Irregular menstrual cycle 626.4 [place] [address] [place] [address] [place] [address] 07611- 8779 Nov, Headache 784.0 ; Posttraumatic stress disorder 309.81 ; Encounter for long-term (current) use of other medications V58.69 ; Edema 782.3 and Fatigue 780.79 [place] [address] [place] [address] [place] [address] 36822- 8476 Nov, [facility] [address] [place] [id number] [place] [address] 33073- 7683 October, [facility] [address] [place] [id number] [place] [address] 34918- 0456 Sep, [facility] [address] [place] [id number] [place] [address] 04944- 1929 Sep, [facility] [address] [place] [id number] [place] [address] 80130- 0034 Jun, [facility] [address] [place] [address] [place] [address] 31892- 8520 Jun, [facility] [address] [place] [id number] [place] [address] 25181- 3400 Jun, [facility] [address] [facility] [id number] [place] [address]- 8594 Jun, [facility] [place] [facility] [address] [id number] [place] [address]- 8926 15 May, 2014 [facility] [place] [facility] [address] [id number] [place] [address]- 3196 15 May, 2014 [facility] [place] [facility] [address] [id number] [place] [address]- 2589 15 May, 2014 [facility] [place] [facility] [address] [id number] [place] [address]- 5961 May, [facility] [place] [facility] [address] [id number] [place] [address]- 4580 May, [facility] [place] [facility] [address] [id number] [place] [address]- 9832 May, [facility] [place] [facility] [address] [id number] [place] [address]- 0984 Apr, [facility] [place] [facility] [address] [id number] [place] [address]- 5572 Apr, [facility] [place] [facility] [address] [id number] [place] [address]- 3360 Jan, [facility] [place] [facility] [address] [id number] [place] [address]- 1037 Jan, [facility] [place] [facility] [address] [id number] [place] [address]- 7208 Jan, [facility] [place] [facility] [address] [id number] [place] [address]- 7762 Jan, [facility] [place] [facility] [address] [id number] [place] 6508 Jan, [facility] [place] [facility] [address] [id number] [place] [address]- 6486 Dec, [facility] [place] [facility] [address] [id number] [place] [address]- 2109 Dec, [facility] [place] [facility] [address] [id number] [place] [address]- 6376 Dec, [facility] [place] [facility] [address] [id number] [place] [address]- 6401 Dec, [facility] [place] [facility] [address] [id number] [place] [address]- 2059 October, [facility] [place] [facility] [address] [id number] [place] [address]- 8203 October, [facility] [place] [facility] [address] [id number] [place] [address]- 6536 October, [facility] [place] [facility] [address] [id number] [place] [address]- 1583 October, [facility] [place] [facility] [address] [id number] [place] [address]- 8453 October, [facility] [place] [facility] [address] [id number] [place] [address]- 7472 October, [facility] [place] [facility] [address] [id number] [place] [address]- 9632 October, [facility] [place] [facility] [address] [id number] [place] [address]- 1299 October, [facility] [place] [facility] [address] [id number] [place] [address]- 2346 Sep, [facility] [place] [facility] [address] [id number] [place] [address]- 4219 Sep, [facility] [place] [facility] [address] [id number] [place] [address]- 8395 Sep, [facility] [place] [facility] [address] [id number] [place] [address]- 7905 Sep, [facility] [place] [facility] [address] [id number] [place] [address]- 7302 Sep, [facility] [place] [facility] [address] [id number] [address]- 7696 Sep, [facility] [address], [place] [address]- 7422 Aug, [facility] [address], [place] [address]- 9985 Aug, [facility] [address], [place] [address]- 9549 Aug, [facility] [address] [place] [address] 52707- 1518 Aug, [facility] [address] [place] [address] 94672- 5522 Aug, [facility] [address] [place] [address] 261929- 4382 Aug, [facility] [address] [place] [address] 209786- 7515 Aug, [facility] [id number] [address]67 Aug, IMMUNIZATIONS No Known Immunizations SOCIAL HISTORY Never Assessed REASON FOR VISIT left leg pain. mainly hurts mid thight to mid calf on the back side. hurts when she ambulates and squats. has hurt since she woke up this am. denies any injury that she can recall. [email or web address] PLAN OF CARE Activity Details Follow Up prn Reason: VITAL SIGNS Height 62 in 2017-03-08 Weight 193.4 lbs 2017-03-08 Temperature 97.7 degrees Fahrenheit 2017-03-08 Heart Rate 84 bpm 2017-03-08 Respiratory Rate 20 2017-03-08 BMI 35.37 kg/m2 2017-03-08 Blood pressure systolic 126 mmHg 2017-03-08 Blood pressure diastolic 78 mmHg 2017-03-08 MEDICATIONS Medication Instructions Dosage Frequency Start Date End Date Duration Status BuPROPion HCl 150 MG Orally 2 times a day 1 tablet 12h Active Sertraline HCl 100 MG Orally at bedtime 2 tablets Active ProAir HFA 108 (90 Base) MCG/ACT Inhalation every 4 hrs 2 puffs as needed 4h Active Atorvastatin Calcium 40 mg Orally Once a day 1 tablet 24h 30 Active Prazosin HCl 2 MG Orally Once a day 1 capsule at bedtime 24h Active Amitriptyline HCl 25 MG Orally Once a day 1 tablet 24h Active Ropinirole HCl 1 MG Orally three times a day 1 tablet 8h Active Arnuity Ellipta 100 MCG/ACT Inhalation Once a day 1 puff 24h Active Oxygen Active RESULTS Name Result Date Reference Range Ultrasound : Venous Doppler (DVT EVAL) 2017-03-08 PROCEDURES No Known procedures INSTRUCTIONS MEDICATIONS ADMINISTERED [...]
--- OUTSIDE RECORDS SUMMARY | 2017-12-31 06:10 | XMS REPORT ---
Author Author TACO CHEUNG Organization [facility] Address [address] [place] [address] Care Team Providers Care Printer Slotter Feeder Name Role Phone TACO CHEUNG Unavailable PROBLEMS Type Condition ICD9-CM Code UXP95-ZM Code Onset Dates Condition Status SNOMED Code Problem Lumbar back pain M54.5 Active 455382302 Problem Tobacco use Z72.0 Active 049368023 Problem Hot flashes N95.1 Active 985875787 Problem Dyspnea, unspecified R06.00 Active 692963831 Problem Mixed hyperlipidemia E78.2 Active 824078918 Problem Essential hypertension I10 Active 17571958 Problem Headache, chronic daily R51 Active 895653292 Problem Multiple thyroid nodules E04.2 Active 868203077 Problem Coronary artery disease involving [place] coronary artery of [place] heart without angina pectoris I25.10 Active 4697245743913 Problem BMI 35.0-35.9,adult Z68.35 Active 168392411 Problem History of endometriosis Z87.42 Active 204632949 Problem Dysmenorrhea N94.6 Active 129008245 Problem Chronic headache R51 Active 319919998 ALLERGIES Substance Reaction Event Type Date Status Aspirin Unknown Drug Allergy Jun, Active latex Unknown Non Drug Allergy Jun, Active ENCOUNTERS Encounter Location Date Diagnosis [facility] [id number] [address] Sep, [facility] [id number] [address] Aug, Multiple thyroid nodules E04.2 [facility] [id number] [address] Jul, Multiple thyroid nodules E04.2 [facility] [id number] [address] Karsten, 2018 H/O cerebral artery stenosis Z86.79 and Multiple thyroid nodules E04.2 [place] [id number] [place] [address] May, [facility] [place] [id number] [place] [address] Feb, Left leg pain M79.[address] [address] Jan, [place] [address] [address] Jan, Dysmenorrhea N94.6 and Coronary artery disease involving [place] coronary artery of [place] heart without angina pectoris I25.10 [facility] [address] [address] Sep, Brown recluse spider bite, accidental or unintentional, initial encounter T63.331A [place] [address] [address] Nov, Tobacco abuse Z72.0 ; Essential hypertension I10 ; Mixed hyperlipidemia E78.2 ; Headache, chronic daily R51 ; Weakness R53.1 ; Lumbar back pain M54.5 and Ingrowing toenail with infection L60.0 [place] [id number] [place] [address] Aug, Tobacco abuse Z72.0 ; Essential hypertension I10 ; Mixed hyperlipidemia E78.2 ; Headache, chronic daily R51 ; Weakness R53.1 ; Dyspnea, unspecified R06.00 and Lumbar back pain M54.[address] [address] Aug, Well woman exam Z01.419 ; Encounter [...] and History of dyspareunia in female Z87.42 [place] [id number] Jul, Essential hypertension I10 ; Mixed hyperlipidemia E78.2 ; Headache, chronic daily R51 ; Weakness R53.1 ; Dyspnea, unspecified R06.00 ; Lumbar back pain M54.5 and Oral contraceptive pill surveillance Z30.[address] [address] Jun, Essential hypertension I10 and Weakness R53.[address] [address] Jun, Essential hypertension I10 ; Mixed hyperlipidemia E78.2 ; Headache, chronic daily R51 ; Weakness R53.1 and Dyspnea, unspecified R06.00 [place] [id number] May, [address] [address] Feb, Paresthesia of upper and lower extremities of both sides 782.0 and Headache 784.[address] [address] Jan, [address] [address] Jan, Paresthesia of upper and lower extremities of both sides 782.0 and Headache 784.[address] [address] Jan, Hyperlipidemia 272.4 ; Essential hypertension, benign 401.1 ; Headache 784.0 ; Depression 311 and Diarrhea 787.91 [facility] [id number] [place] [address] Jan, [facility] [id number] [place] [address] Jan, Hyperlipidemia 272.4 ; Essential hypertension, benign 401.1 ; Headache 784.0 ; Depression 311 and Diarrhea 787.91 [facility] [address] [address] Dec, Irregular menses 626.4 [place] [id number] [place] [address] Dec, Hyperlipidemia 272.4 ; Essential hypertension, benign 401.1 ; Headache 784.0 ; Depression 311 and Irregular menstrual cycle 626.4 [place] [id number] [place] [address] Nov, Headache 784.0 ; Posttraumatic stress disorder 309.81 ; Encounter for long-term (current) use of other medications V58.69 ; Edema 782.3 and Fatigue 780.79 [place] [id number] [place] [address] Nov, [facility] [id number] [place] [address] October, [place] [id number] [place] [address] Sep, [facility] [id number] [place] [address] Sep, [facility] [id number] [place] [address] Jun, [facility] [id number] [place] [address] Jun, [facility] [id number] [place] [address] Jun, [facility] [place] [facility] [address] [id number] [place] [address] Jun, [facility] [place] [facility] [address] [id number] [place] [address] 15 May, 2014 [facility] [place] [facility] [address] [id number] [place] [address] 15 May, 2014 [facility] [place] [facility] [address] [id number] [place] [address] 15 May, 2014 [facility] [place] [facility] [address] [id number] [place] [address] 15 May, 2014 [facility] [place] [facility] [address] [id number] [place] [address] May, [facility] [place] [facility] [address] [id number] [place] [address] May, [facility] [place] [facility] [address] [id number] [place] [address] Apr, [facility] [place] [facility] [address] [id number] [place] [address] Apr, [facility] [place] [facility] [address] [id number] [place] [address] Jan, [facility] [place] [facility] [address] [id number] [place] [address] Jan, [facility] [place] [facility] [address] [id number] [place] [address] Jan, [facility] [place] [facility] [address] [id number] [place] [address] Jan, [facility] [place] [facility] [address] [id number] [place] [address] Jan, [facility] [place] [facility] [address] [id number] [place] [address] Dec, [facility] [place] [facility] [address] [id number] [place] [address] Dec, [facility] [place] [facility] [address] [id number] [place] [address]- [address] Dec, [facility] [place] [facility] [address] [id number] [place] [address] Dec, [facility] [place] [facility] [address] [id number] [place] [address] October, [facility] [place] [facility] [address] [id number] [place] [address] October, [facility] [place] [facility] [address] [id number] [place] [address]- [address] October, [facility] [place] [facility] [address] [id number] [place] [address] October, [facility] [place] [facility] [address] [id number] [place] [address] October, [facility] [place] [facility] [address] [id number] [place] [address] October, [facility] [place] [facility] [address] [id number] [place] [address]- 00[address] October, [facility] [place] [facility] [address] [id number] [place] [address]- [address] October, [facility] [place] [facility] [address] [id number] [place] [address]- [address] Sep, [facility] [place] [facility] [address] [id number] [place] [address] Sep, [facility] [place] [facility] [address] [id number] [place] [address]- 89[address] Sep, [facility] [place] [facility] [address] [id number] [place] [address]- [address] Sep, [facility] [place] [facility] [address] [id number] [place] [address]- [address] Sep, [facility] [place] [facility] [address] [id number] [address] Sep, [facility] [address] Aug, [facility] [id number] Aug, [facility] [address] Aug, [facility] [address] [address] Aug, [facility] [address] [address] Aug, [facility] [address] [address] Aug, [facility] [address] Aug, [facility] [id number] [address] Aug, IMMUNIZATIONS No Known Immunizations SOCIAL HISTORY Never Assessed REASON FOR VISIT Hospital f/u--[facility], -Went in Saturday to ER with complex migraine or mini stroke. , --went to [facility]-ran multiple tests PLAN OF CARE Activity Details Follow Up with Dr. Alvares tomorrow and pending us Reason: VITAL SIGNS Height 62 in 2017-06-25 Weight 193.6 lbs 2017-06-25 Temperature 98.1 degrees Fahrenheit 2017-06-25 Heart Rate 88 bpm 2017-06-25 Respiratory Rate 18 2017-06-25 BMI 35.41 kg/m2 2017-06-25 Blood pressure systolic 116 mmHg 2017-06-25 Blood pressure diastolic 82 mmHg 2017-06-25 MEDICATIONS Medication Instructions Dosage Frequency Start Date End Date Duration Status Prazosin HCl 2 MG Orally Once a day 1 capsule at bedtime 24h Active Fish Oil 1000 MG Orally bid 2 capsule 12h 30 day(s) Active Sertraline HCl 100 MG Orally at bedtime 2 tablets Active Atorvastatin Calcium 40 mg Orally Once a day 1 tablet 24h Active Multi Vitamin Daily Orally Once a day 1 tablet 24h Active BuPROPion HCl 150 MG Orally 2 times a day 1 tablet 12h Active ProAir HFA 108 (90 Base) MCG/ACT Inhalation every 4 hrs 2 puffs as needed 4h Active Ropinirole HCl 1 MG Orally three times a day 1 tablet 8h Active Amitriptyline HCl 25 MG Orally Once a day 1 tablet 24h Active Oxygen Active Arnuity Ellipta 100 MCG/ACT Inhalation Once a day 1 puff 24h Active RESULTS Name Result Date Reference Range Ultrasound : Thyroid 2017-07-19 PROCEDURES No Known procedures INSTRUCTIONS MEDICATIONS ADMINISTERED [...]
--- OUTSIDE RECORDS SUMMARY | 2017-12-31 06:10 | XMS REPORT ---
Author TACO Rajan [facility] [employer] Address Unknown Phone Unavailable Care Team Providers Care Railway Track Worker Name Role Phone TACO CHEUNG CP Unavailable Allergies, Adverse Reactions, Alerts Substance Reaction Event Type Aspirin Info Not Available Drug Allergy latex Info Not Available Non Drug Allergy Problems Problem Type Condition ICD-9 Code Onset [...] Instructions Start Date End Date Status Dosage Lexapro [facility] [address]-22 20 MG Orally Once a day TAKE ONE TABLET BY MOUTH DAILY (MUST HAVE APPOINTMENT FOR REFILL) Hydrochlorothiazide [facility] [address]-64 25 mg 1 tablet by Oral route 1 time per day PRN Propranolol HCl [facility] [address]-51 60 MG Orally Once a day 1 tablet Atorvastatin Calcium [facility] [address]-51 40 MG Orally Once a day 1 tablet Ortho Micronor [facility] [address]-41 0.35 MG Orally Once a day January 11, [address] [facility] [address]-21 50 MG Orally Twice a day November 22, 2014 1 tablet Procedures Procedure Coding System Code Date IMMUNOASSAY, NONANTIBODY CPT-4 13572 Feb 01, 2015 ASSAY OF GAMMAGLOBULIN IGM CPT-4 29185 Feb 01, 2015 COMPREHEN METABOLIC PANEL CPT-4 25946 Feb 01, 2015 Office Visit, Est Pt., Level 4 CPT-4 84889 Feb 01, 2015 FLUORESCENT ANTIBODY, SCREEN CPT-4 26991 Feb 01, 2015 VENIPUNCT, ROUTINE* CPT-4 04836 Feb 01, 2015 Vital Signs Date/Time: Feb 01, 2015 Temperature 97.5 F Weight 190.0 lbs Height 62 in BMI 34.75 Index Blood Pressure Diastolic 72 mmHg Blood Pressure Systolic 118 mmHg Cardiac Monitoring Heart Rate 80 bpm Results Name Result Date Reference Range Unit Abnormality Flag CMP ROUTINE VENIPUNCTURE CELIAC DISEASE COMPREHENSIVE ----Immunoglobulin A, Qn, Serum 128 20150201 91-414 mg/dL ----t-Transglutaminase (tTG) IgG <2 22425468 0-5 U/mL ----Endomysial Antibody IgA Negative [id number] Negative ----Deamidated Gliadin Abs, IgG 2 40165708 0-19 units ----t-Transglutaminase (tTG) IgA <2 23063040 0-3 U/mL ----Deamidated Gliadin Abs, IgA 3 [id number] 0-19 units Summary Purpose [employer] Submission
--- OUTSIDE RECORDS SUMMARY | 2017-12-31 06:10 | XMS REPORT ---
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
--- OUTSIDE RECORDS SUMMARY | 2017-12-31 06:10 | XMS REPORT ---
Author Author TACO CHEUNG Organization [employer] Address Unknown Phone Unavailable Care Team Providers Care Crab Steamer Name Role Phone TACO CHEUNG CP Unavailable [...]
--- OUTSIDE RECORDS SUMMARY | 2017-12-31 06:11 | XMS REPORT ---
Author Author TACO CHEUNG Organization [employer] Address Unknown Phone Unavailable Care Team Providers Care Silver Solution Mixer Name Role Phone TACO CHEUNG CP Unavailable Allergies No Known Allergies Problems Problem Type Condition Code Onset Dates Condition Status Problem Mixed hyperlipidemia E78.2 Active Problem Headache, chronic daily R51 Active Problem Essential hypertension I10 Active Assessment Essential hypertension I10 Active Assessment Weakness R53.1 Active Problem Weakness R53.1 Active Problem Dyspnea, unspecified R06.00 Active Medications No Known Medications Procedures Procedure Coding System Code Date [facility] CPT-4 NOBLL Jul 13, 2015 VENIPUNCT, ROUTINE* CPT-4 51447 Jul 13, 2015 ELECTROCARDIOGRAM, TRACING CPT-4 20148 Jul 13, 2015 Results Name Result Date Reference Range Unit Abnormality Flag ROUTINE VENIPUNCTURE Summary Purpose [employer] Submission
--- OUTSIDE RECORDS SUMMARY | 2017-12-31 06:11 | XMS REPORT ---
Author Author TACO CHEUNG Organization [employer] Address Unknown Phone Unavailable Care Team Providers Care Financial Accounting Manager Name Role Phone TACO CHEUNG CP Unavailable Allergies, Adverse Reactions, Alerts Substance Reaction Event Type Aspirin Info Not Available Drug Allergy latex Info Not Available Non Drug Allergy Problems Problem Type Condition ICD-9 Code Onset Dates Condition Status Assessment Paresthesia [...] Instructions Start Date End Date Status Dosage B Complex [facility] [address]-70 Orally not defined Ortho Micronor [facility] [address]-13 0.35 MG Orally Once a day January 11, 2015 1 tablet Propranolol HCl [facility] [address]-55 60 MG Orally Once a day 1 tablet Hydrochlorothiazide [facility] [address]-08 25 mg 1 tablet by Oral route 1 time per day PRN Topamax [facility] [address]-64 50 MG Orally Twice a day November 22, 2014 1 tablet Multi Vitamin Daily [facility] [address] Orally Once a day 1 tablet Lexapro [facility] [address]-22 20 MG Orally Once a day TAKE ONE TABLET BY MOUTH DAILY (MUST HAVE APPOINTMENT FOR REFILL) Atorvastatin Calcium [facility] [address]-57 40 MG Orally Once a day 1 tablet Procedures Procedure Coding System Code Date Office Visit, Est Pt., Level 4 CPT-4 72098 Feb 09, 2015 Vital Signs Date/Time: Feb 09, 2015 Temperature 97.1 F Weight 190.4 lbs Height 62 in BMI 34.82 Index Blood Pressure Diastolic 82 mmHg Blood Pressure Systolic 118 mmHg Cardiac Monitoring Heart Rate 80 bpm Results No Known Results Summary Purpose [employer] Submission
--- OUTSIDE RECORDS SUMMARY | 2017-12-31 06:11 | XMS REPORT ---
Author Author TACO CHEUNG [facility] Address [address] [place] [address] Care Team Providers Care Physical Chemistry Professor Name Role Phone TACO CHEUNG Unavailable PROBLEMS Type Condition ICD9-CM Code [id number] Code Onset Dates Condition Status SNOMED Code Problem Lumbar back pain M54.5 Active 229040150 Problem Tobacco use Z72.0 Active 467867515 Problem Hot flashes N95.1 Active 064642889 Problem Dyspnea, unspecified R06.00 Active 085881490 Problem Mixed hyperlipidemia E78.2 Active 769546380 Problem Essential hypertension I10 Active 71287297 Problem Headache, chronic daily R51 Active 605507519 Problem Multiple thyroid nodules E04.2 Active 039775469 Problem Coronary artery disease involving [place] coronary artery of [place] heart without angina pectoris I25.10 Active 7028701098144 Problem BMI 35.0-35.9,adult Z68.35 Active 784831893 Problem History of endometriosis Z87.42 Active 927310748 Problem Dysmenorrhea N94.6 Active 798567566 Problem Chronic headache R51 Active 461734344 ALLERGIES No Information ENCOUNTERS Encounter Location Date Diagnosis [facility] [id number] [place] [address]99- 8079 Aug, Multiple thyroid nodules E04.2 [facility] [address] [place] [address] 76733- 4124 Jul, Multiple thyroid nodules E04.2 [facility] [id number] [place] [address] 31300- 6496 Jun, H/O cerebral artery stenosis Z86.79 and Multiple thyroid nodules E04.2 [facility] [address], [place] [address] May, [facility] [address] [place] [address]76 -7258 Feb, Left leg pain M79.605 [place] [address] 17843- 2359 Jan, [place] [id number] [place] [address] 68137- 0290 Jan, Dysmenorrhea N94.6 and Coronary artery disease involving [place] coronary artery of [place] heart without angina pectoris I25.10 [facility] [id number] [place] [address] 07081 -4610 Sep, Brown recluse spider bite, accidental or unintentional, initial encounter T63.331A [place] [id number] [place] [address] 91912- 8391 Nov, Tobacco abuse Z72.0 ; Essential hypertension I10 ; Mixed hyperlipidemia E78.2 ; Headache, chronic daily R51 ; Weakness R53.1 ; Lumbar back pain M54.5 and Ingrowing toenail with infection L60.0 [place] [id number] [place] [address] 37316- 1291 Aug, Tobacco abuse Z72.0 ; Essential hypertension I10 ; Mixed hyperlipidemia E78.2 ; Headache, chronic daily R51 ; Weakness R53.1 ; Dyspnea, unspecified R06.00 and Lumbar back pain M54.5 [place] [id number] [place] [address] 45065- 5416 Aug, Well woman exam Z01.419 ; Encounter [...] and History of dyspareunia in female Z87.[address] [address]- 1847 Jul, Essential hypertension I10 ; Mixed hyperlipidemia E78.2 ; Headache, chronic daily R51 ; Weakness R53.1 ; Dyspnea, unspecified R06.00 ; Lumbar back pain M54.5 and Oral contraceptive pill surveillance Z30.[address] 69915- 9565 Jun, Essential hypertension I10 and Weakness R53.[address] 44805- 5011 Jun, Essential hypertension I10 ; Mixed hyperlipidemia E78.2 ; Headache, chronic daily R51 ; Weakness R53.1 and Dyspnea, unspecified R06.[address] 10655- 4117 May, [address] 17079- 5511 Feb, Paresthesia of upper and lower extremities of both sides 782.0 and Headache 784.[address] 46747- 6192 Jan, [address] 99487- 6883 Jan, Paresthesia of upper and lower extremities of both sides 782.0 and Headache 784.[address] 02450- 0780 Jan, Hyperlipidemia 272.4 ; Essential hypertension, benign 401.1 ; Headache 784.0 ; Depression 311 and Diarrhea 787.[address] 56448- 1199 Jan, [address] [place] [address]- 4705 Jan, Hyperlipidemia 272.4 ; Essential hypertension, benign 401.1 ; Headache 784.0 ; Depression 311 and Diarrhea 787.91 [facility] [id number] [place] [address] 04571- 3219 Dec, Irregular menses 626.4 [facility] [id number] [place] [address] 80985- 6016 Dec, Hyperlipidemia 272.4 ; Essential hypertension, benign 401.1 ; Headache 784.0 ; Depression 311 and Irregular menstrual cycle 626.4 [facility] [address] 42229- 6196 Nov, Headache 784.0 ; Posttraumatic stress disorder 309.81 ; Encounter for long-term (current) use of other medications V58.69 ; Edema 782.3 and Fatigue 780.79 [facility] [id number] [place] [address] 51161- 2336 Nov, [facility] [id number] [place] [address] 19138- 0053 October, [facility] [id number] [place] [address] 27183- 7026 Sep, [facility] [id number] [place] [address] 35849- 4409 Sep, [facility] [id number] [place] [address] 70757- 1376 Jun, [facility] [id number] [place] [address] 30625- 0056 Jun, [facility] [address] 81187- 8406 Jun, [facility] [id number] [place] [address] 93011- 1256 Jun, [facility] [id number] [place] [address] 03387- 8916 May, [facility] [place] [facility] [address] [id number] [place] [address]- 9506 15 May, 2014 [facility] [place] [facility] [address] [id number] [place] [address]- 1756 May, [facility] [place] [facility] [address] [id number] [place] [address]- 0185 15 May, 2014 [facility] [place] [facility] [address] [id number] [place] [address]- 3614 May, [facility] [place] [facility] [address] [id number] [place] [address]- 1413 May, [facility] [place] [facility] [address] [id number] [place] [address]- 6107 Apr, [facility] [place] [facility] [address] [id number] [place] [address]- 6733 Apr, [facility] [place] [facility] [address] [id number] [place] [address]- 2726 Jan, [facility] [place] [facility] [address] [id number] [place] [address]- 8984 Jan, [facility] [place] [facility] [address] [id number] [place] [address]- 2314 Jan, [facility] [place] [facility] [address] [id number] [place] [address]- 1572 Jan, [facility] [place] [facility] [address] [id number] [place] [address]- 4533 Jan, [facility] [place] [facility] [address] [id number] [place] [address]- 9111 Dec, [facility] [place] [facility] [address] [id number] [place] [address]- 0996 Dec, [facility] [place] [facility] [address] [id number] [place] [address]- 2162 Dec, [facility] [place] [facility] [address] [id number] [place] [address]- 9352 Dec, [facility] [address] [id number] [place] [address]- 6029 October, [facility] [place] [facility] [address] [id number] [place] [address]- 8075 October, [facility] [place] [facility] [address] [id number] [place] [address]- 8674 October, [facility] [place] [facility] [address] [id number] [place] [address]- 8430 October, [facility] [place] [facility] [address] [id number] [place] [address]- 1885 October, [facility] [place] [facility] [address] [id number] [place] [address]- 2045 October, [facility] [address] [id number] [place] [address]- 3977 October, [facility] [place] [facility] [address] [id number] [place] [address]- 7097 October, [facility] [place] [facility] [address] [id number] [place] [address]- 8099 Sep, [facility] [place] [facility] [address] [id number] [place] [address]- 4240 Sep, [facility] [place] [facility] [address] [id number] [place] [address]- 6526 Sep, [facility] [place] [facility] [address] [id number] [place] [address]- 1642 Sep, [facility] [place] [facility] [address] [id number] [place] [address]- 9320 Sep, [facility] [place] [facility] [address] [id number] [place] [address]- 7905 Sep, [facility] [place] [facility] [address] [id number] [place] [address]- 7609 Aug, [facility] [place] [facility] [id number] [address] 285[address] 31 Aug, 2013 [facility] [id number] [address]- 8542 Aug, [facility] [address], [place] [address]- 4106 Aug, [facility] [id number] [address]- 2059 Aug, [facility] [address], [place] [address]- 0141 Aug, [facility] [id number] [address]- 0348 Aug, [facility] [id number], [place] [address]- 6922 Aug, IMMUNIZATIONS No Known Immunizations SOCIAL HISTORY Never Assessed REASON FOR VISIT eye exam PLAN OF CARE VITAL SIGNS MEDICATIONS No Known Medications RESULTS No Results PROCEDURES No Known procedures INSTRUCTIONS MEDICATIONS ADMINISTERED No Known Medications MEDICAL (GENERAL) HISTORY Type Description Date Medical History HYPERTENSION Medical History HYPERLIPIDEMIA Medical History HEADACHE SYNDROMES Migraine Medical History PSYCHIATRIC DISORDERS- BIPOLAR, PTSD Medical History FX RIGHT KNEE CAP Medical History carotid artery stenosis--mild--dx by Dr. Garcias in 2016 Medical History 06/18/2017--normal echocardiogram Surgical History SURGICAL LYSIS OF INTESTINAL ADHESIONS Surgical History APPENDECTOMY Surgical History SECTION X1 Hospitalization History surgeries Hospitalization History sleep study Hospitalization History migraine/ possible mini stroke 06/2017
--- OUTSIDE RECORDS SUMMARY | 2017-12-31 06:11 | XMS REPORT ---
Author Author TACO CHEUNG Organization [facility] Address [address] [place] [address] Care Team Providers Care Foxing Cutting Machine Operator Name Role Phone TACO CHEUNG Unavailable PROBLEMS Type Condition ICD9-CM Code FYA07-GR Code Onset Dates Condition Status SNOMED Code Problem Lumbar back pain M54.5 Active 745468480 Problem Tobacco use Z72.0 Active 956007966 Problem Hot flashes N95.1 Active 403977743 Problem Dyspnea, unspecified R06.00 Active 725594097 Problem Mixed hyperlipidemia E78.2 Active 347723906 Problem Essential hypertension I10 Active 50264742 Problem Headache, chronic daily R51 Active 744156195 Problem Multiple thyroid nodules E04.2 Active 707271290 Problem Coronary artery disease involving [place] coronary artery of [place] heart without angina pectoris I25.10 Active 4072300495957 Problem BMI 35.0-35.9,adult Z68.35 Active 184618585 Problem History of endometriosis Z87.42 Active 494567273 Problem Dysmenorrhea N94.6 Active 483257077 Problem Chronic headache R51 Active 561992045 ALLERGIES Substance Reaction Event Type Date Status Aspirin Unknown Drug Allergy Jan, Active latex Unknown Non Drug Allergy Jan, Active ENCOUNTERS Encounter Location Date Diagnosis [facility] [id number], [place] [address]- 7255 Aug, Multiple thyroid nodules E04.2 [facility] [id number], [place] [address]- 5993 Jul, Multiple thyroid nodules E04.2 [facility] [id number] [address]- 6247 Jun, H/O cerebral artery stenosis Z86.79 and Multiple thyroid nodules E04.2 [facility] [id number] [place] [address] 19323- 9479 May, [facility] [id number] [place] [address] 24425 -5745 Feb, Left leg pain M79.605 [place] [address] [id number] [place] [address] 63288- 8363 Jan, [place] [address] [address]- 1978 Jan, Dysmenorrhea N94.6 and Coronary artery disease involving [place] coronary artery of [place] heart without angina pectoris I25.10 [facility] [place] [address] [address]89 -0958 Sep, Brown recluse spider bite, accidental or unintentional, initial encounter T63.331A [address] 6[address]16- 0544 Nov, Tobacco abuse Z72.0 ; Essential hypertension I10 ; Mixed hyperlipidemia E78.2 ; Headache, chronic daily R51 ; Weakness R53.1 ; Lumbar back pain M54.5 and Ingrowing toenail with infection L60.0 [place] [id number] [place] [address] 28881- 4373 Aug, Tobacco abuse Z72.0 ; Essential hypertension I10 ; Mixed hyperlipidemia E78.2 ; Headache, chronic daily R51 ; Weakness R53.1 ; Dyspnea, unspecified R06.00 and Lumbar back pain M54.5 [place] [address] 40044- 4139 Aug, Well woman exam Z01.419 ; Encounter [...] and History of dyspareunia in female Z87.42 [place] [address] [place] [id number] [place] [address] 27176- 5718 Jul, Essential hypertension I10 ; Mixed hyperlipidemia E78.2 ; Headache, chronic daily R51 ; Weakness R53.1 ; Dyspnea, unspecified R06.00 ; Lumbar back pain M54.5 and Oral contraceptive pill surveillance Z30.41 [place] [address] 99581- 0830 Jun, Essential hypertension I10 and Weakness R53.1 [place] [address] 97803- 9346 Jun, Essential hypertension I10 ; Mixed hyperlipidemia E78.2 ; Headache, chronic daily R51 ; Weakness R53.1 and Dyspnea, unspecified R06.00 [place] [address] 32607- 9490 May, [place] [address] 05094- 1290 Feb, Paresthesia of upper and lower extremities of both sides 782.0 and Headache 784.0 [place] [address] [place] [id number] [place] [address] 32835- 1245 Jan, [place] [address] 56214- 3888 Jan, Paresthesia of upper and lower extremities of both sides 782.0 and Headache 784.0 [place] [address] 16687- 4258 Jan, Hyperlipidemia 272.4 ; Essential hypertension, benign 401.1 ; Headache 784.0 ; Depression 311 and Diarrhea 787.91 [place] [address] 24001- 5406 Jan, [facility] [address] [place] [address] 71758- 8455 Jan, Hyperlipidemia 272.4 ; Essential hypertension, benign 401.1 ; Headache 784.0 ; Depression 311 and Diarrhea 787.91 [facility] [id number] [place] [address] 90030- 5283 Dec, Irregular menses 626.4 [facility] [address] 52895- 3035 Dec, Hyperlipidemia 272.4 ; Essential hypertension, benign 401.1 ; Headache 784.0 ; Depression 311 and Irregular menstrual cycle 626.4 [facility] [address] 56848- 9775 Nov, Headache 784.0 ; Posttraumatic stress disorder 309.81 ; Encounter for long-term (current) use of other medications V58.69 ; Edema 782.3 and Fatigue 780.79 [facility] [id number] [place] [address] 07453- 9751 Nov, [facility] [id number] [place] [address] 20092- 3786 October, [facility] [id number] [place] [address] 70609- 2058 Sep, [facility] [id number] [place] [address] 20952- 3146 Sep, [facility] [id number] [place] [address] 20546- 2343 Jun, [facility] [id number] [place] [address] 06051- 6580 Jun, [facility] [id number] [place] [address] 35873- 6418 Jun, [facility] [address] [id number] [place] [address] 36028- 3409 Jun, [facility] [place] [facility] [address] [id number] [place] [address]- 6218 15 May, 2014 [facility] [place] [facility] [address] [id number] [place] 4486 15 May, 2014 [facility] [place] [facility] [address] [id number] [place] 0016 15 May, 2014 [facility] [place] [facility] [address] [id number] [place] [address]- 9056 15 May, 2014 [facility] [place] [facility] [address] [id number] [place] [address]- 6080 15 May, 2014 [facility] [place] [facility] [address] [id number] [place] [address]- 1195 15 May, 2014 [facility] [place] [facility] [address] [id number] [place] [address]- 7685 15 Apr, 2014 [facility] [place] [facility] [address] [id number] [place] [address]- 1132 Apr, [facility] [place] [facility] [address] [id number] [place] [address]- 9923 Jan, [facility] [place] [facility] [address] [id number] [place] [address]- 2484 Jan, [facility] [place] [facility] [address] [id number] [place] [address]- 7160 Jan, [facility] [place] [facility] [address] [id number] [place] [address]- 7110 Jan, [facility] [place] [facility] [address] [id number] [place] 3736 Jan, [facility] [place] [facility] [address] [id number] [place] [address]- 0196 Dec, [facility] [place] [facility] [address] [id number] [place] [address]- 2076 Dec, [facility] [place] [facility] [address] [id number] [place] [address]- 3644 Dec, [facility] [place] [facility] [address] [id number] [place] [address]- 7570 Dec, [facility] [place] [facility] [address] [id number] [place] [address]- 1003 October, [facility] [place] [facility] [address] [id number] [place] [address]- 2295 October, [facility] [place] [facility] [address] [id number] [place] [address]- 5966 October, [facility] [place] [facility] [address] [id number] [place] [address]- 5780 October, [facility] [place] [facility] [address] [id number] [place] [address]- 4340 October, [facility] [place] [facility] [address] [id number] [place] [address]- 8451 October, [facility] [place] [facility] [address] [id number] [place] [address]- 3718 October, [facility] [place] [facility] [address] [id number] [place] [address]- 4106 October, [facility] [place] [facility] [address] [id number] [place] [address]- 0871 Sep, [facility] [place] [facility] [address] [id number] [place] [address]- 5022 Sep, [facility] [place] [facility] [address] [id number] [place] [address]- 9391 Sep, [facility] [place] [facility] [address] [id number] [place] [address]- 8272 Sep, [facility] [place] [facility] [address] [id number] [place] [address]- 2509 Sep, [facility] [place] [facility] [address] [id number] [place] [address]- 7060 Sep, [facility] [place] [facility] [address] [id number] [address]- 7738 Aug, [facility] [address], [place] [address]- 2306 Aug, [facility] [address], [place] [address]- 6692 Aug, [facility] [address], [place] [address]- 4457 Aug, [facility] [address], [place] [address]- 9192 Aug, [facility] [address], [place] [address]- 5819 Aug, [facility] [address], [place] [address]- 7777 Aug, [facility] [address], [place] [address]- 8010 Aug, IMMUNIZATIONS No Known Immunizations SOCIAL HISTORY Never Assessed REASON FOR VISIT discuss medications, pt. states it has been too long since she has seen her primary doctor and would like to get back on control, pt. states he oxygen is fine during the day but drops to almost 80 at night, pt. states having RT Pulmonary Function w/DLCO tomorrow and has the overnight monitor currently, [place] Infante PLAN OF CARE Activity Details Follow Up 1 Year, prn Reason: VITAL SIGNS Height 62 in 2017-01-17 Weight 192.7 lbs 2017-01-17 Temperature 97.6 degrees Fahrenheit 2017-01-17 Heart Rate 90 bpm 2017-01-17 Respiratory Rate 20 2017-01-17 Oximetry 95 % 2017-01-17 BMI 35.24 kg/m2 2017-01-17 Blood pressure systolic 119 mmHg 2017-01-17 Blood pressure diastolic 82 mmHg 2017-01-17 MEDICATIONS Medication Instructions Dosage Frequency Start Date End Date Duration Status Ropinirole HCl 1 MG Orally three times [...] Once a day 1 tablet 24h Active Prazosin HCl 2 MG Orally Once a day 1 capsule at bedtime 24h Active Sertraline HCl 100 MG Orally at bedtime 2 tablets Active Oxygen Active Arnuity Ellipta 100 MCG/ACT Inhalation Once a day 1 puff 24h Active RESULTS No Results PROCEDURES Procedure Date Ordered Result Body Site MEASURE BLOOD OXYGEN LEVEL Jan 17, 2017 INSTRUCTIONS MEDICATIONS ADMINISTERED No Known Medications MEDICAL [...]
--- OUTSIDE RECORDS SUMMARY | 2017-12-31 06:11 | XMS REPORT ---
Author Author TACO CHEUNG Organization [employer] Address Unknown Phone Unavailable Care Team Providers Care Laboratory Scientist Name Role Phone TACO CHEUNG CP Unavailable Allergies, Adverse Reactions, Alerts Substance Reaction Event Type Aspirin Info Not Available Drug Allergy latex Info Not Available Non Drug Allergy Problems Problem Type Condition Code Onset Dates Condition Status Assessment Dyspnea, unspecified R06.00 Active Assessment Headache, chronic daily R51 Active Assessment Weakness R53.1 Active Problem Mixed hyperlipidemia E78.2 Active Problem Headache, chronic daily R51 Active Problem Essential hypertension I10 Active Assessment Essential hypertension I10 Active Assessment Mixed hyperlipidemia E78.2 Active Problem Weakness R53.1 Active Problem Dyspnea, unspecified R06.00 Active Medications Medication Code System Code Instructions Start Date End Date Status Dosage Ortho Micronor [facility] [id number] 0.35 MG Orally Once a day 1 tablet B Complex [facility] [address]-88 Orally not defined Propranolol HCl [facility] [id number] 60 MG TAKE ONE TABLET BY MOUTH DAILY Multi Vitamin Daily [facility] [address]756-65181 Orally Once a day 1 tablet Atorvastatin Calcium [facility] [address]-35 40 MG Orally Once a day 1 tablet Hydrochlorothiazide [facility] [address]-22 25 mg 1 tablet by Oral route 1 time per day PRN Topamax [facility] [address]-60 50 MG Orally Twice a day 1 tablet Lexapro [facility] [address]-46 20 MG TAKE ONE TABLET BY MOUTH DAILY Procedures Procedure Coding System Code Date Office Visit, Est Pt., Level 4 CPT-4 95363 Jul 12, 2015 Vital Signs Date/Time: Jul 12, 2015 Temperature 97.8 F Weight 191.0 lbs Height 62 in BMI 34.93 Index Blood Pressure Diastolic 70 mmHg Blood Pressure Systolic 110 mmHg Cardiac Monitoring Heart Rate 86 bpm Results No Known Results Summary Purpose eClinicalWorks Submission
--- OUTSIDE RECORDS SUMMARY | 2017-12-31 06:11 | XMS REPORT ---
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
--- OUTSIDE RECORDS SUMMARY | 2017-12-31 06:12 | XMS REPORT | Continuity of Care Document ---
Author Author [facility] Address Unknown Phone Unavailable Allergies Active Description Code Type Severity Reaction Onset Reported/Identified Relationship to Patient Clinical Status Yes aspirin [id number] Drug Allergy Moderate N/A 05/04/2009 Yes aspirin Drug Allergy N/A N/A 09/11/2013 Yes adhesive tape [id number] Drug Allergy Unknown HIVES 12/26/2017 Yes latex [id number] Drug Allergy Unknown HIVES 12/26/2017 Medications There is no data. Problems Date Dx Coded Attending Type Code Diagnosis Diagnosed By 05/06/2009 Ot 543.9 05/06/2009 Ot 614.6 05/06/2009 Ot 617.1 05/06/2009 Ot 620.6 05/06/2009 Ot 625.0 09/03/2013 ALEX NAPIER DO 309.81 AN PTSD 09/03/2013 DENNIS LOPEZ MD 309.81 AN PTSD 09/03/2013 JAVIER MAGALLANES, MADY Velasquez 309.81 AN PTSD 09/03/2013 ALEX NAPIER DO 309.81 AN PTSD 09/03/2013 DENNIS LOPEZ MD 309.81 AN PTSD 09/03/2013 TACO CHEUNG APRN 309.81 AN PTSD 09/03/2013 ALEX NAPIER DO 309.81 AN PTSD 09/03/2013 JERI JOHNSON APRN 309.81 AN PTSD 09/03/2013 VASILIY CASTILLO APRN 309.81 AN PTSD 09/03/2013 TACO CHEUNG APRN 309.81 AN PTSD 09/11/2013 ALEX NAPIER DO 272.4 OTHER AND UNSPECIFIED HYPERLIPIDEMIA 09/11/2013 ALEX NAPIER DO 401.1 BENIGN ESSENTIAL HYPERTENSION 09/11/2013 ALEX NAPIER DO V58.69 LONG-TERM (CURRENT) USE OF OTHER MEDICATIONS 09/11/2013 ALEX NAPIER DO 272.4 OTHER AND UNSPECIFIED HYPERLIPIDEMIA 09/11/2013 NAPIER DO, ALEX K 401.1 BENIGN ESSENTIAL HYPERTENSION 09/11/2013 KARTHIKEYAN CRAWFORD ALEX K V58.69 LONG-TERM (CURRENT) USE OF OTHER MEDICATIONS 09/11/2013 DENNIS LOPEZ MD 272.4 OTHER AND UNSPECIFIED HYPERLIPIDEMIA 09/11/2013 DENNIS LOPEZ MD 401.1 BENIGN ESSENTIAL HYPERTENSION 09/11/2013 DENNIS LOPEZ MD V58.69 LONG-TERM (CURRENT) USE OF OTHER MEDICATIONS 09/11/2013 MADY HERRERA PHD 272.4 OTHER AND UNSPECIFIED HYPERLIPIDEMIA 09/11/2013 MADY HERRERA PHD 401.1 BENIGN ESSENTIAL HYPERTENSION 09/11/2013 MADY HERRERA PHD V58.69 LONG-TERM (CURRENT) USE OF OTHER MEDICATIONS 09/11/2013 ALEX NAPIER DO K 272.4 OTHER AND UNSPECIFIED HYPERLIPIDEMIA 09/11/2013 KARTHIKEYAN CRAWFORD ALEX K 401.1 BENIGN ESSENTIAL HYPERTENSION 09/11/2013 KARTHIKEYAN CRAWFORD ALEX K V58.69 LONG-TERM (CURRENT) USE OF OTHER MEDICATIONS 09/11/2013 DENNIS LOPEZ MD 272.4 OTHER AND UNSPECIFIED HYPERLIPIDEMIA 09/11/2013 DENNIS LPOEZ MD 401.1 BENIGN ESSENTIAL HYPERTENSION 09/11/2013 DENNIS LOPEZ MD V58.69 LONG-TERM (CURRENT) USE OF OTHER MEDICATIONS 09/11/2013 JONATAN RICE MILLING SUPERVISORDAVI MckeonA L 272.4 OTHER AND UNSPECIFIED HYPERLIPIDEMIA 09/11/2013 MADAndrea NAVARRETE TACO L 401.1 BENIGN ESSENTIAL HYPERTENSION 09/11/2013 MADAndrea NAVARRETE, TACO L V58.69 LONG-TERM (CURRENT) USE OF OTHER MEDICATIONS 09/11/2013 MEREDITH NAPIER DOA K 272.4 OTHER AND UNSPECIFIED HYPERLIPIDEMIA 09/11/2013 KARTHIKEYAN CRAWFORD ALEX K 401.1 BENIGN ESSENTIAL HYPERTENSION 09/11/2013 KARTHIKEYAN CRAWFORD ALEX K V58.69 LONG-TERM (CURRENT) USE OF OTHER MEDICATIONS 09/11/2013 JERI JOHNSON APRN 272.4 OTHER AND UNSPECIFIED HYPERLIPIDEMIA 09/11/2013 ALEX NAVARRETE JERI 401.1 BENIGN ESSENTIAL HYPERTENSION 09/11/2013 ALEX NAVARRETE JERI V58.69 LONG-TERM (CURRENT) USE OF OTHER MEDICATIONS 09/11/2013 VASILYI CASTILLO APRN 272.4 OTHER AND UNSPECIFIED HYPERLIPIDEMIA 09/11/2013 VASILIY CASTILLO APRN 401.1 BENIGN ESSENTIAL HYPERTENSION 09/11/2013 VASILIY CASTILLO APRN V58.69 LONG-TERM (CURRENT) USE OF OTHER MEDICATIONS 09/11/2013 MADL RICE MILLING SUPERVISOR, TACO L 272.4 OTHER AND UNSPECIFIED HYPERLIPIDEMIA 09/11/2013 MADL RICE MILLING SUPERVISOR, TACO L 401.1 BENIGN ESSENTIAL HYPERTENSION 09/11/2013 MADL RICE MILLING SUPERVISOR, TACO L V58.69 LONG-TERM (CURRENT) USE OF OTHER MEDICATIONS 10/21/2013 NAPIER DO, ALEX K 782.3 EDEMA 10/21/2013 DENNIS LOPEZ MD 782.3 EDEMA 10/21/2013 MADL RICE MILLING SUPERVISOR, TACO L 782.3 EDEMA 10/21/2013 NAPIER DO, ALEX K 782.3 EDEMA 10/21/2013 ALEX RICE MILLING SUPERVISOR, JERI 782.3 EDEMA 10/21/2013 VASILIY CASTILLO APRN 782.3 EDEMA 10/21/2013 MADL RICE MILLING SUPERVISOR, TACO L 782.3 EDEMA 12/29/2013 MADL RICE MILLING SUPERVISOR, TACO L 272.4 OTHER AND UNSPECIFIED HYPERLIPIDEMIA 12/29/2013 MADL RICE MILLING SUPERVISOR, TACO L 401.1 HYPERTENSION, BENIGN ESSENTIAL 12/29/2013 MADL RICE MILLING SUPERVISOR, TACO L 782.3 EDEMA 12/29/2013 NAPIER DO, ALEX K 272.4 OTHER AND UNSPECIFIED HYPERLIPIDEMIA 12/29/2013 NAPIER DO, ALEX K 401.1 HYPERTENSION, BENIGN ESSENTIAL 12/29/2013 NAPIER DO, ALEX K 782.3 EDEMA 12/29/2013 ALEX LANDON JERI 272.4 OTHER AND UNSPECIFIED HYPERLIPIDEMIA 12/29/2013 ALEX RICE MILLING SUPERVISOR, JERI 401.1 HYPERTENSION, BENIGN ESSENTIAL 12/29/2013 ALEX RICE MILLING SUPERVISOR, JERI 782.3 EDEMA 12/29/2013 VASILIY CASTILLO APRN 272.4 OTHER AND UNSPECIFIED HYPERLIPIDEMIA 12/29/2013 VASILIY CASTILLO APRN 401.1 HYPERTENSION, BENIGN ESSENTIAL 12/29/2013 VASILIY CASTILLO APRN 782.3 EDEMA 12/29/2013 MADL RICE MILLING SUPERVISOR, TACO L 272.4 OTHER AND UNSPECIFIED HYPERLIPIDEMIA 12/29/2013 MADL RICE MILLING SUPERVISOR, TACO L 401.1 HYPERTENSION, BENIGN ESSENTIAL 12/29/2013 MADL RICE MILLING SUPERVISOR, TACO L 782.3 EDEMA 01/18/2014 NAPIER DO, ALEX K 461.9 SINUSITIS ACUTE 01/18/2014 NAPIER DO, ALEX K 780.60 FEVER, UNSPECIFIED 01/18/2014 NAPIER DO, ALEX K 784.0 HEADACHE 01/18/2014 NAPIER DO, ALEX K 787.01 NAUSEA WITH VOMITING 01/18/2014 NAPIER DO, ALEX K 787.91 DIARRHEA 01/18/2014 ALEX RICE MILLING SUPERVISORJERI 461.9 SINUSITIS ACUTE 01/18/2014 ALEX RICE MILLING SUPERVISOR, JERI 780.60 FEVER, UNSPECIFIED 01/18/2014 ALEX RICE MILLING SUPERVISOR, JERI 784.0 HEADACHE 01/18/2014 ALEX RICE MILLING SUPERVISOR, JERI 787.01 NAUSEA WITH VOMITING 01/18/2014 ALEX RICE MILLING SUPERVISOR, JERI 787.91 DIARRHEA 01/18/2014 VASILIY CASTILLO APRN 461.9 SINUSITIS ACUTE 01/18/2014 VASILIY CASTILLO APRN 780.60 FEVER, UNSPECIFIED 01/18/2014 VASILIY CASTILLO APRN 784.0 HEADACHE 01/18/2014 VASILIY CASTILLO APRN 787.01 NAUSEA WITH VOMITING 01/18/2014 VASILIY CASTILLO APRN 787.91 DIARRHEA 01/18/2014 MADL RICE MILLING SUPERVISOR, TACO L 461.9 SINUSITIS ACUTE 01/18/2014 MADL RICE MILLING SUPERVISOR, TACO L 780.60 FEVER, UNSPECIFIED 01/18/2014 MADL RICE MILLING SUPERVISOR, TACO L 784.0 HEADACHE 01/18/2014 MADL RICE MILLING SUPERVISOR, TACO L 787.01 NAUSEA WITH VOMITING 01/18/2014 MADL RICE MILLING SUPERVISOR, TACO L 787.91 DIARRHEA 02/09/2014 JERI JOHNSON APRN V58.69 MEDICATION HIGH RISK 02/09/2014 VASILIY CASTILLO APRN V58.69 MEDICATION HIGH RISK 02/09/2014 MADL RICE MILLING SUPERVISOR, TACO L V58.69 MEDICATION HIGH RISK 05/01/2014 VASILIY CASTILLO APRN 465.9 UPPER RESPIRATORY INFECTION 05/01/2014 KAIL RICE MILLING SUPERVISOR, TACO L 465.9 UPPER RESPIRATORY INFECTION 06/22/2014 MADL RICE MILLING SUPERVISOR, TACO L 701.1 KERATODERMA ACQUIRED 06/22/2014 MADL RICE MILLING SUPERVISOR, TACO L 780.79 OTHER MALAISE AND FATIGUE 09/01/2015 JESÚS CUEVAS A RICE MILLING SUPERVISOR Ot R10.2 09/01/2015 ELIZABETH CUEVASY A RICE MILLING SUPERVISOR Ot R14.0 09/01/2015 JESÚS CUEVAS A RICE MILLING SUPERVISOR Ot Z87.42 09/12/2015 MASON JESÚS A RICE MILLING SUPERVISOR Ot R10.2 09/12/2015 MASON JESÚS A RICE MILLING SUPERVISOR Ot R14.0 09/12/2015 MASON JESÚS A RICE MILLING SUPERVISOR Ot Z87.42 10/14/2015 MASON JESÚS A RICE MILLING SUPERVISOR Ot R10.2 PELVIC AND PERINEAL PAIN 10/14/2015 MASON JESÚS A RICE MILLING SUPERVISOR Ot R14.0 ABDOMINAL DISTENSION (GASEOUS) 10/14/2015 MASON JESÚS A RICE MILLING SUPERVISOR Ot Z87.42 PERSONAL HISTORY OF OTH DISEASES OF THE 10/14/2015 FEDE VENTURA MD Ot E78.2 MIXED HYPERLIPIDEMIA 10/14/2015 FEDE VENTURA MD Ot I10 ESSENTIAL (PRIMARY) HYPERTENSION 10/14/2015 FEDE VENTURA MD Ot R06.02 SHORTNESS OF BREATH 10/14/2015 FEDE VENTURA MD Ot R07.89 OTHER CHEST PAIN 10/14/2015 FEDE VENTURA MD Ot Z72.0 TOBACCO USE 10/17/2015 FEDE VENTURA MD Ot E78.2 MIXED HYPERLIPIDEMIA 10/17/2015 FEDE VENTURA MD Ot I10 ESSENTIAL (PRIMARY) HYPERTENSION 10/17/2015 FEDE VENTURA MD Ot R06.02 SHORTNESS OF BREATH 10/17/2015 FEDE VENTURA MD Ot R07.89 OTHER CHEST PAIN 10/17/2015 FEDE VENTURA MD Ot Z72.0 TOBACCO USE 10/19/2015 FEDE VENTURA MD Ot E78.2 MIXED HYPERLIPIDEMIA 10/19/2015 FEDE VENTURA MD Ot I10 ESSENTIAL (PRIMARY) HYPERTENSION 10/19/2015 FEDE VENTURA MD Ot R06.02 SHORTNESS OF BREATH 10/19/2015 FEDE VENTURA MD Ot R07.89 OTHER CHEST PAIN 10/19/2015 FEDE VENTURA MD Ot Z72.0 TOBACCO USE 10/27/2015 FEDE VENTURA MD Ot E78.2 MIXED HYPERLIPIDEMIA 10/27/2015 FEDE VENTURA MD Ot I10 ESSENTIAL (PRIMARY) HYPERTENSION 10/27/2015 FEDE VENTURA MD Ot R06.02 SHORTNESS OF BREATH 10/27/2015 FEDE VENTURA MD Ot R07.89 OTHER CHEST PAIN 10/27/2015 FEDE VENTURA MD Ot Z72.0 TOBACCO USE 11/01/2015 FEDE VENTURA MD Ot E78.2 MIXED HYPERLIPIDEMIA 11/01/2015 FEDE VENTURA MD Ot I10 ESSENTIAL (PRIMARY) HYPERTENSION 11/01/2015 FEDE VENTURA MD Ot R06.02 SHORTNESS OF BREATH 11/01/2015 FEDE VENTURA MD Ot R07.89 OTHER CHEST PAIN 11/01/2015 FEDE VENTURA MD Ot Z72.0 TOBACCO USE 11/03/2015 FEDE VENTURA MD Ot E78.2 MIXED HYPERLIPIDEMIA 11/03/2015 FEDE VENTURA MD Ot I10 ESSENTIAL (PRIMARY) HYPERTENSION 11/03/2015 FEDE VENTURA MD Ot R06.02 SHORTNESS OF BREATH 11/03/2015 FEDE VENTURA MD Ot R07.89 OTHER CHEST PAIN 11/03/2015 FEDE VENTURA MD Ot Z72.0 TOBACCO USE 01/14/2016 JESÚS CUEVAS RICE MILLING SUPERVISOR Ot R10.2 PELVIC AND PERINEAL PAIN 01/14/2016 JESÚS CUEVAS RICE MILLING SUPERVISOR Ot R14.0 ABDOMINAL DISTENSION (GASEOUS) 01/14/2016 JESÚS CUEVAS RICE MILLING SUPERVISOR Ot Z87.42 PERSONAL HISTORY OF OTH DISEASES OF THE 01/14/2016 FEDE VENTURA MD Ot E78.2 MIXED HYPERLIPIDEMIA 01/14/2016 FEDE VENTURA MD Ot I10 ESSENTIAL (PRIMARY) HYPERTENSION 01/14/2016 FEDE VENTURA MD Ot R06.02 SHORTNESS OF BREATH 01/14/2016 FEDE VENTURA MD Ot R07.89 OTHER CHEST PAIN 01/14/2016 FEDE VENTURA MD Ot Z72.0 TOBACCO USE 01/14/2016 FEDE VENTURA MD Ot E78.2 MIXED HYPERLIPIDEMIA 01/14/2016 FEDE VENTURA MD Ot I10 ESSENTIAL (PRIMARY) HYPERTENSION 01/14/2016 FEDE VENTURA MD Ot R06.02 SHORTNESS OF BREATH 01/14/2016 FEDE VENTURA MD Ot R07.89 OTHER CHEST PAIN 01/14/2016 FEDE VENTURA MD Ot Z72.0 TOBACCO USE 01/14/2016 FEDE VENTURA MD Ot E78.2 MIXED HYPERLIPIDEMIA 01/14/2016 FEDE VENTURA MD Ot I10 ESSENTIAL (PRIMARY) HYPERTENSION 01/14/2016 FEDE VENTURA MD Ot R06.02 SHORTNESS OF BREATH 01/14/2016 FEDE VENTURA MD Ot R07.89 OTHER CHEST PAIN 01/14/2016 FEDE VENTURA MD Ot Z72.0 TOBACCO USE 01/16/2016 DONY ANDREWS MD Ot J32.0 CHRONIC MAXILLARY SINUSITIS 01/16/2016 DONY ANDREWS MD Ot R20.2 PARESTHESIA OF SKIN 01/16/2016 DONY ANDREWS MD Ot R51 HEADACHE 01/17/2016 DONY ANDREWS MD Ot J32.0 CHRONIC MAXILLARY SINUSITIS 01/17/2016 DONY ANDREWS MD Ot R20.2 PARESTHESIA OF SKIN 01/17/2016 DONY ANDREWS MD Ot R51 HEADACHE 01/20/2016 DONY ANDREWS MD Ot J32.0 CHRONIC MAXILLARY SINUSITIS 01/20/2016 DONY ANDREWS MD Ot R20.2 PARESTHESIA OF SKIN 01/20/2016 DONY ANDREWS MD Ot R51 HEADACHE 01/31/2016 DONY ANDREWS MD Ot J32.0 CHRONIC MAXILLARY SINUSITIS 01/31/2016 DONY ANDREWS MD Ot R20.2 PARESTHESIA OF SKIN 01/31/2016 DONY ANDREWS MD Ot R51 HEADACHE 11/18/2016 FEDE VENTURA MD Ot G47.33 OBSTRUCTIVE SLEEP APNEA (ADULT) (PEDIATR 11/18/2016 FEDE VENTURA MD Ot I10 ESSENTIAL (PRIMARY) HYPERTENSION 11/18/2016 FEDE VENTURA MD Ot R06.83 SNORING 11/19/2016 FEDE VENTURA MD Ot G47.33 OBSTRUCTIVE SLEEP APNEA (ADULT) (PEDIATR 11/19/2016 FEDE VENTURA MD Ot I10 ESSENTIAL (PRIMARY) HYPERTENSION 11/19/2016 FEDE VENTURA MD Ot R06.83 SNORING 01/18/2017 KRISTAL WOODS RICE MILLING SUPERVISOR Ot E66.9 OBESITY, UNSPECIFIED 01/18/2017 KRISTAL WOODS RICE MILLING SUPERVISOR Ot G47.34 IDIO SLEEP RELATED NONOBSTRUCTIVE ALVEOL 01/18/2017 KRISTAL WOODS RICE MILLING SUPERVISOR Ot J30.2 OTHER SEASONAL ALLERGIC RHINITIS 01/18/2017 KRISTAL WOODS RICE MILLING SUPERVISOR Ot R06.02 SHORTNESS OF BREATH 01/18/2017 KRISTAL WOODS RICE MILLING SUPERVISOR Ot Z72.0 TOBACCO USE 03/07/2017 BETTY TERRELL DO Ot R10.2 PELVIC AND PERINEAL PAIN 03/22/2017 SHANTE SEAY RICE MILLING SUPERVISOR Ot M79.605 PAIN IN LEFT LEG 04/08/2017 SHANTE SEAY RICE MILLING SUPERVISOR Ot M79.605 PAIN IN LEFT LEG 05/16/2017 KRISTAL WOODS RICE MILLING SUPERVISOR Ot J98.11 ATELECTASIS 05/16/2017 KRISTAL WOODS RICE MILLING SUPERVISOR Ot R06.02 SHORTNESS OF BREATH 07/22/2017 MADL, TACO L DRUM STRAIGHTENER Ot E04.2 NONTOXIC MULTINODULAR GOITER 08/02/2017 MADL, TACO L DRUM STRAIGHTENER Ot E04.2 NONTOXIC MULTINODULAR GOITER 08/06/2017 MADL, TACO L DRUM STRAIGHTENER Ot E04.1 NONTOXIC SINGLE THYROID NODULE 08/06/2017 MADL, TACO L DRUM STRAIGHTENER Ot E04.1 NONTOXIC SINGLE THYROID NODULE 08/13/2017 MADL, TACO L DRUM STRAIGHTENER Ot E04.1 NONTOXIC SINGLE THYROID NODULE 08/22/2017 MADL, TACO L DRUM STRAIGHTENER Ot E04.1 NONTOXIC SINGLE THYROID NODULE 11/07/2017 KATHARINE GUAJARDO Ot E78.2 MIXED HYPERLIPIDEMIA 11/07/2017 KATHARINE GUAJARDO Ot I10 ESSENTIAL (PRIMARY) HYPERTENSION 11/07/2017 KATHARINE GUAJARDO Ot N80.9 ENDOMETRIOSIS, UNSPECIFIED 11/07/2017 KATHARINE GUAJARDO Ot R06.09 OTHER FORMS OF DYSPNEA 11/07/2017 KATHARINE GUAJARDO Ot R51 HEADACHE 11/21/2017 KATHARINE GUAJARDO Ot E78.2 MIXED HYPERLIPIDEMIA 11/21/2017 KATHARINE GUAJARDO Ot I10 ESSENTIAL (PRIMARY) HYPERTENSION 11/21/2017 KATHARINE GUAJARDO Ot N80.9 ENDOMETRIOSIS, UNSPECIFIED 11/21/2017 KATHARINE GUAJARDO Ot R06.09 OTHER FORMS OF DYSPNEA 11/21/2017 KATHARINE GUAJARDO Ot R51 HEADACHE Procedures Code [place] [id number] ROUTINE VENIPUNCTURE 09/14/2013 02191 CMP 09/14/2013 07389 LIPID PANEL 09/14/2013 28575 TSH 09/14/2013 94470 PSYCH DIAGNOSTIC EVALUATION 09/14/2013 86352 CBC 09/14/2013 64988 PSYTX PT&/FAMILY 45 MINUTES 10/19/2013 32962 ROUTINE VENIPUNCTURE 12/29/2013 75729 BMP 12/29/2013 J2550 PHENERGAN INJECTION UP TO 50 MG 01/18/2014 70498 THERAPUTIC INJ SQ/IM 01/18/2014 83289 ROUTINE VENIPUNCTURE 02/09/2014 79535 CBC 02/09/2014 08594 ROUTINE VENIPUNCTURE 06/22/2014 02607 CMP 06/22/2014 60902 TSH 06/22/2014 Results Test Result Range Complete blood count (CBC) with automated white blood cell (WBC) differential - 05/01/17 11:56 Blood leukocytes automated count (number/volume) 9.1 10*3/uL 4.3-11.0 Blood erythrocytes automated count (number/volume) 4.83 10*6/uL 4.35-5.85 Venous blood hemoglobin measurement (mass/volume) 14.9 g/dL 11.5-16.0 Blood hematocrit (volume fraction) 44 % 35-52 Automated erythrocyte mean corpuscular volume 90 [foz_us] 80-99 Automated erythrocyte mean corpuscular hemoglobin (mass per erythrocyte) 31 pg 25-34 Automated erythrocyte mean corpuscular hemoglobin concentration measurement ( mass/volume) 34 g/dL 32-36 Automated erythrocyte distribution width ratio 14.2 % 10.0-14.5 Automated blood platelet count (count/volume) 263 10*3/uL 130-400 Automated blood platelet mean volume measurement 10.1 [foz_us] 7.4-10.4 Automated blood neutrophils/100 leukocytes 49 % 42-75 Automated blood lymphocytes/100 leukocytes 44 % 12-44 Blood monocytes/100 leukocytes 6 % 0-12 Automated blood eosinophils/100 leukocytes 1 % 0-10 Automated blood basophils/100 leukocytes 0 % 0-10 Blood neutrophils automated count (number/volume) 4.5 10*3 1.8-7.8 Blood lymphocytes automated count (number/volume) 4.0 10*3 1.0-4.0 Blood monocytes automated count (number/volume) 0.6 10*3 0.0-1.0 Automated eosinophil count 0.1 10*3/uL 0.0-0.3 Automated blood basophil count (count/volume) 0.0 10*3/uL 0.0-0.1 Complete blood count (CBC) with automated white blood cell (WBC) differential - 12/26/17 14:00 Blood leukocytes automated count (number/volume) 9.3 10*3/uL 4.3-11.0 Blood erythrocytes automated count (number/volume) 4.51 10*6/uL 4.35-5.85 Venous blood hemoglobin measurement (mass/volume) 14.4 g/dL 11.5-16.0 Blood hematocrit (volume fraction) 40 % 35-52 Automated erythrocyte mean corpuscular volume 89 [foz_us] 80-99 Automated erythrocyte mean corpuscular hemoglobin (mass per erythrocyte) 32 pg 25-34 Automated erythrocyte mean corpuscular hemoglobin concentration measurement ( mass/volume) 36 g/dL 32-36 Automated erythrocyte distribution width ratio 13.8 % 10.0-14.5 Automated blood platelet count (count/volume) 252 10*3/uL 130-400 Automated blood platelet mean volume measurement 10.5 [foz_us] 7.4-10.4 Automated blood neutrophils/100 leukocytes 60 % 42-75 Automated blood lymphocytes/100 leukocytes 35 % 12-44 Blood monocytes/100 leukocytes 5 % 0-12 Automated blood eosinophils/100 leukocytes 1 % 0-10 Automated blood basophils/100 leukocytes 0 % 0-10 Blood neutrophils automated count (number/volume) 5.5 10*3 1.8-7.8 Blood lymphocytes automated count (number/volume) 3.2 10*3 1.0-4.0 Blood monocytes automated count (number/volume) 0.4 10*3 0.0-1.0 Automated eosinophil count 0.1 10*3/uL 0.0-0.3 Automated blood basophil count (count/volume) 0.0 10*3/uL 0.0-0.1 Complete urinalysis with reflex to culture - 12/26/17 14:00 Urine color determination YELLOW NRG Urine clarity determination CLEAR NRG Urine pH measurement by test strip 6 5-9 Specific gravity of urine by test strip 1.025 1.016- 1.022 Urine protein assay by test strip, semi-quantitative 1+ NEGATIVE Urine glucose detection by automated test strip NEGATIVE NEGATIVE Erythrocytes detection in urine sediment by light microscopy NEGATIVE NEGATIVE Urine ketones detection by automated test strip NEGATIVE NEGATIVE Urine nitrite detection by test strip NEGATIVE NEGATIVE Urine total bilirubin detection by test strip NEGATIVE NEGATIVE Urine urobilinogen measurement by automated test strip (mass/volume) NORMAL NORMAL Urine leukocyte esterase detection by dipstick 1+ NEGATIVE Automated urine sediment erythrocyte count by microscopy (number/high power field) NONE NRG Automated urine sediment leukocyte count by microscopy (number/high power field ) [HPF] NRG Bacteria detection in urine sediment by light microscopy LARGE NRG Squamous epithelial cells detection in urine sediment by light microscopy 5-10 NRG Crystals detection in urine sediment by light microscopy NONE NRG Casts detection in urine sediment by light microscopy NONE NRG Mucus detection in urine sediment by light microscopy NEGATIVE NRG Complete urinalysis with reflex to culture NO NRG PT panel in platelet poor plasma by coagulation assay - 12/26/17 14:00 Prothrombin time (PT) in platelet poor plasma by coagulation assay 13.1 s 12.2-14.7 INR in platelet poor plasma or blood by coagulation assay 1.0 0.8-1.4 Blood type T Indirect antibody screen panel - 12/26/17 14:00 ABO+Rh group ABP NRG Transfusion band number TNP NRG Blood group antibody screen NEGATIVE NRG Methicillin resistant Staphylococcus aureus (MRSA) screening culture - 14:00 Methicillin resistant Staphylococcus aureus (MRSA) screening culture NEG NRG Encounters ACCT No. Visit Date/Time Discharge Status Pt. Type Provider Facility Loc./Unit Complaint [id number] 06/22/2014 10:04:00 06/22/2014 23:59:59 CLS Outpatient KAIAndrea LANDON TACO Mendez [id number] 05/01/2014 10:19:00 05/01/2014 23:59:59 CLS Outpatient VASILIY CASTILLO APRN [id number] 02/09/2014 15:29:00 02/09/2014 23:59:59 CLS Outpatient JERI JOHNSON APRN [id number] 01/18/2014 13:40:00 01/18/2014 23:59:59 CLS Outpatient ALEX NAPIER DO [id number] 12/29/2013 14:35:00 12/29/2013 23:59:59 CLS Outpatient TACO CHEUNG APRN [id number] 11/10/2013 14:41:00 11/10/2013 23:59:59 CLS Outpatient DENNIS LOPEZ MD [id number] 10/21/2013 16:24:00 10/21/2013 23:59:59 CLS Outpatient ALEX NAPIER DO [id number] 10/19/2013 14:47:00 10/19/2013 23:59:59 CLS Outpatient JAVIER MAGALLANES, MADY Velasquez [id number] 10/15/2013 13:51:00 10/15/2013 23:59:59 CLS Outpatient DENNIS LOPEZ MD [id number] 09/14/2013 08:03:00 09/14/2013 23:59:59 CLS Outpatient ALEX NAPIER DO [id number] 09/11/2013 14:41:00 09/11/2013 23:59:59 CLS Outpatient ALEX NAPIER DO [id number] 12/26/2017 13:26:00 12/26/2017 14:15:00 DIS Outpatient BETTY TERRELL DO [facility] PREOP CHRONIC PELVIC PAIN, ADHESIONS,ENDOMETRIOSIS [id number] 11/06/2017 10:16:00 11/06/2017 23:59:59 CLS Outpatient KATHARINE GUAJARDO [facility] CARD R06.02 DYSPNEA [id number] 08/05/2017 09:57:00 08/05/2017 23:59:59 CLS Outpatient TACO CHEUNG DRUM STRAIGHTENER [facility] RAD E04.2 MULTIPLE THYROID NODULES [id number] 07/19/2017 10:28:00 07/19/2017 23:59:59 CLS Outpatient TACO CHEUNG DRUM STRAIGHTENER [facility] RAD E04.2 MULTIPLE THYROID NODULES [id number] 05/01/2017 11:24:00 05/01/2017 23:59:59 CLS Outpatient KRISTAL WOODS RICE MILLING SUPERVISOR [facility] RAD R40, E72.0, R06.02 [id number] 03/08/2017 17:00:00 03/08/2017 23:59:59 CLS Outpatient SHANTE SEAY RICE MILLING SUPERVISOR [facility] RAD M79.605 [id number] 02/21/2017 10:59:00 02/21/2017 23:59:59 CLS Outpatient TERRELLBETTY Mcgee DO [facility] RAD CHRONIC FEMALE PELVIC PAIN R10.2 [id number] 01/18/2017 12:47:00 01/18/2017 23:59:59 CLS Outpatient KRISTAL WOODS [employer] [facility] RT SOB R06.02 [id number] 01/04/2017 12:38:00 01/04/2017 23:59:59 CLS Outpatient KRISTAL WOODS [employer] [facility] RAD G47.34 R06.02 [id number] 11/17/2016 20:03:00 11/18/2016 06:00:00 DIS Outpatient FEDE VENTURA MD [facility] SLEEP MEGHA [id number] 01/14/2016 07:18:00 01/14/2016 23:59:59 CLS Outpatient DONY ANDREWS MD [facility] RAD HEADACHE,PARATHESIA-ALL EXTREMITIES [id number] 10/17/2015 07:26:00 10/17/2015 23:59:59 CLS Outpatient FEDE VENTURA MD [facility] CARD [id number] 10/14/2015 12:31:00 10/14/2015 23:59:59 CLS Outpatient FEDE VENTURA MD [facility] CARD [id number] 10/10/2015 09:09:00 10/10/2015 23:59:59 CLS Outpatient LORENZO ALBA, FEDE Vo [facility] CARD [id number] 08/18/2015 12:30:00 08/18/2015 23:59:59 CLS Outpatient JESÚS CUEVAS APRN [facility] RAD [id number] 12/31/2017 06:05:00 ACT Outpatient BETTY TERRELL DO [facility] CHRONIC PELVIC PAIN,ADHESIONS,ENDOMETRIOSIS [id number] 05/06/2009 05:47:00 Document Registration [id number] 06/25/2017 14:00:00 06/25/2017 23:59:59 CLS Outpatient TACO CHEUNG APRN [facility]
[2017-12-31 06:15] VITALS: BP 112/79
[2017-12-31] MEDS ORDERED: ceFAZolin INJECTION 1,000 MG in NS (IVPB) 50 ML IV ONE (06:30)
[2017-12-31] MEDS ORDERED: metroNIDAZOLE 500MG/100ML IVPB 100 ML IV ONE (06:30)
[2017-12-31] MEDS: LACTATED RINGERS 1,000 ML IV PRN ×2 (06:30→08:40)
[2017-12-31] MEDS ORDERED: proPOfol 200 MG/20 ML (DIPRIVAN) VIAL IV ONE (06:45)
[2017-12-31] MEDS ORDERED: ONDANSETRON 4 MG/2 ML (SDV) Z0FRAN ONE (06:45)
[2017-12-31] MEDS ORDERED: LIDOCAINE PF 2% 5 ML (XYLOCAINE) VIAL ONE (06:45)
[2017-12-31] MEDS ORDERED: MIDAZOLAM 2 MG/2 ML (VERSED) VIAL ONE (06:46)
[2017-12-31] MEDS ORDERED: fentaNYL INJECTION 100 MCG/2 ML AMP ONE ×2 (06:46→09:01)
[2017-12-31] MEDS ORDERED: ROCURONIUM 10 MG/ML 5 ML SYRINGE IV ONE ×2 (06:52→09:19)
[2017-12-31] MEDS ORDERED: SEVOFLURANE (ULTANE) 15 ML INHAL SOLN ONE ×11 (06:52→10:27)
[2017-12-31] MEDS ORDERED: FAMOTIDINE 20MG/2ML IV (PEPCID) IVP ONE (07:00)
[2017-12-31] MEDS ORDERED: DEXAMETHASONE 10 MG/ML (DECADRON) 1 ML VIAL ONE (07:00)
[2017-12-31] MEDS ORDERED: BUP/EPI 0.5% 1:200,000 (SENSORCAINE) 30 ML VIAL ONE (07:23)
[2017-12-31] MEDS ORDERED: INDIGO CARMINE 8 MG/ML 5 ML AMP ONE (09:47)
[2017-12-31] MEDS ORDERED: FUROSEMIDE 40 MG/4 ML INJ (LASIX) ONE (09:50)
[2017-12-31] MEDS ORDERED: SIMETHICONE 80 MG (MYLICON) CHEW PO PRN (10:15)
[2017-12-31] MEDS ORDERED: HYDROcodone/APAP 7.5 MG/325 MG (LORTAB, LORCET PLUS) TABLET PO PRN (10:15)
[2017-12-31] MEDS ORDERED: DOCUSATE SODIUM 100 MG (COLACE) CAP PO PRN (10:15)
[2017-12-31] MEDS ORDERED: KETOROLAC 30 MG/ML VIAL IV PRN (10:15)
[2017-12-31] MEDS ORDERED: HYDROmorphone 1 MG/ML (DILAUDID) 1 ML SYRINGE IV PRN ×2 (10:15→10:45)
[2017-12-31] MEDS ORDERED: ONDANSETRON 4 MG/2 ML (SDV) Z0FRAN IV PRN (10:15)
[2017-12-31] MEDS ORDERED: ANTACID SUSP 30 ML UDC (MYLANTA) PO PRN (10:15)
[2017-12-31] MEDS ORDERED: GLYCOPYRROLATE 0.2 MG/ML (ROBINUL) 2 ML VIAL ONE (10:17)
[2017-12-31] MEDS ORDERED: NEOSTIGMINE 1 MG/ML 5 ML SYRINGE ONE (10:17)
--- NOTE | 2017-12-31 10:23 | Operative Report ---
Operative Report Date of Procedure/Surgery Dec 31, 2017 Surgeon (s) BETTY TERRELL DO Park Guide (s): Rahel Fisher, LANDON; alexust nec for retraction of imp. neurovas structures Post-Operative Diagnosis Chronic pelvic pain, endometriosis, left ovarian cyst, uterovesicular adhesion, previous tubal ligation, possible previous left salpingectomy (no tubal tissue noted), menorrhagia, incidental cystotomy Procedure Performed RaTH, bilateral salpingectomy, left ovarian cystectomy, lysis of adhesions, cystotomy repair Description of Procedure Anesthesia Type: General Estimated blood loss (mL): min Specimen(s) collected/removed uterus, tubes and right ovarian cyst Description of the Procedure After informed consent was obtained, patient was taken into the operating room where general anesthetic was found to be adequate. She was prepped and draped in the usual sterile fashion in the dorsal lithotomy position. A Martins catheter was placed. A speculum was placed in the vagina. The cervix was visualized and the anterior lip was grasped with a sharp toothed tenaculum. The uterus was sounded and depth was approximately 10 centimeters. I placed the Val device. And then set the Val to 10 cm and a 3.5 cm collar was advanced over the cervix. I inserted the Val without difficulty, inflating the balloon and securing it around the fornix of the cervix. The collar was then secured with sutures at 12 o'clock. Attention was then turned to the patient's abdomen. A supraumbilical incision was made about 10 mm. A Veress needle was inserted and I confirmed intraabdominal placement with a drop in pressure and the saline drop test. I then insufflated the abdomen to a maximum of 15 mmHg with warmed CO2 gas. I then placed an 8 mm trocar and then the Da Lebron camera and intraperitoneal placement was confirmed. I then determined the procedure could be continued robotically. I then placed an assist port in the right upper quadrant, triangulated with the umbilical and right trocars. This was a 10-12 trocar. The first robotic port was placed about 15 cm lateral to the right and left of the umbilical placement and slightly inferior. These are both 8 mm trocars. These were placed under direct visualization of the laparoscope. 0.50% Marcaine was injected prior to placement of all trocars. When all placements were confirmed, the patient was placed in steep Trendelenburg allowing adequate visualization and the robot was brought in for docking. The docking was accomplished without difficulty. A survey of the pelvis confirmed the above mentioned findings. retroverted uterus, vesicouterine adhesions, evidence of right tubal ligation with scarring of the right tube to the right ovarian fossa , right peritubal cysts no left tube or tubal remnants seen, simple left ovarian cyst, ruptured spontaneously, scarring in the culdesac consistent with probably endometriosis but no active endometriosis noted. There was evidence of bilateral tubal interruption, though there was no tubal tissue noted, so maybe a salpingectomy at some point?. I was able to visualize the round ligaments bilaterally and grasped them and cauterized with bipolar cautery and then cut with my po. At this point, I then did bilateral salpingectomy. I incised the mesosalpinx bilaterally and then transected at the cornu removing the tubes. Then, I grasped the ovarian ligaments bilaterally. I sealed the vessel and transected bilaterally using the bipolar cautery and then cut with the monopolar po. I then moved my dissection to the posterior leaves of the broad ligament. I dissected the posterior leaves of the broad ligament off the uterine arteries skeletonizing them bilaterally. I then took a second clamp with the bipolar cautery and with the po, transected the vessels away from the lateral aspect to the cervical stroma. I dissected the anterior peritoneum off the lower uterine segment. I continually pushed the bladder back and I took excessively great care and I was eventually able to dissect the vesicouterine peritoneum off the lower uterine segment. though I did not initially see a defect in the bladder, at the end of the procedure, the latex free tip of the catheter was poking through the bladder ( about two millimeters). I closed this with 3-0 Vicryl in two interrupted layers. I gave indigo carmine and there was no leakage after the repair. The martins will remain for 1 week. I then dissected in a V fashion towards the midline between the uterosacral ligaments. This allowed me to skeletonize the uterine vessels bilaterally. The balloon on the VAL was insufflated. This allowed me to see the VAL circumferentially. I then performed a colpotomy anteriorly and then amputate with cervix away from the vaginal fornix. I then continued the colpotomy circumferentially. Once this was performed, the conservation assistant removed the uterus through the vagina. A sponge was left in the vagina to maintain pneumoperitoneum. I then began closure of the vaginal cuff. I closed the apices of the vaginal cuff with 2-0 Vicryl V lock sutures with a colposuspension through the uterosacral ligaments. This suspended the apices of the vaginal cuff. I extended this to the midline from both sides and overlapped the V lock sutures in the midline. Excellent closure is noted and hemostasis is achieved. The was bilateral peristalsis of the ureters, though the left was deep and difficult to see regularly. All the needles were removed from the patient's abdomen. The fascial incisions were closed with 0-Vicryl and the skin with 4-0 Monocryl in a subcuticular fashion and then [place] was placed. Bandages were placed. Patient was awakened and taken to the recovery room in stable condition. Following the case, instrument counts were correct. The patient was repositioned in the supine position and awakened from general anesthesia without difficulty. She was taken to recovery in stable condition. Ancef and Flagyl were given preoperatively. SCD s are used for DvT prophylaxis. Findings of the Procedure 2 mm cystotomy from the martins catheter tip (latex free) retroverted uterus, vesicouterine adhesions, evidence of right tubal ligation with scarring of the right tube to the right ovarian fossa, right peritubal cysts no left tube or tubal remnants seen, simple left ovarian cyst, ruptured spontaneously, scarring in the culdesac consistent with probably endometriosis but no active endometriosis noted. Allergies and Home Medications Allergies Coded Allergies: aspirin (Unverified Allergy, Intermediate, 05/04/09) adhesive tape (Verified Allergy, Unknown, HIVES, 12/26/17) latex (Verified Allergy, Unknown, HIVES, 12/26/17) Home Medications Cetirizine HCl 10 Mg Tablet, 10 MG PO DAILY, (Reported) Clopidogrel Bisulfate 75 Mg Tablet, 75 MG PO DAILY, (Reported) Docusate Sodium 100 Mg Capsule, 100 MG PO BID PRN for CONSTIPATION-1ST LINE Prescribed by: BETTY TERRELL on 12/31/17 1618 Duloxetine HCl 60 Mg Capsule.dr, 60 MG PO DAILY, (Reported) Hydrocodone Bit/Acetaminophen 1 Ea Tablet, 1-2 EA PO Q6H PRN for PAIN-MODERATE Prescribed by: BETTY TERRELL on 12/31/171617 Ibuprofen 600 Mg Tablet, 600 MG PO Q6H PRN for PAIN-MILD Prescribed by: BETTY TERRELL on 12/31/171617 Mag Hydrox/Al Hydrox/Simeth 30 Ml Oral.susp, 30 ML PO QID PRN for INDIGESTION Prescribed by: BETTY TERRELL on 12/31/171617 Montelukast Sodium 10 Mg Tablet, 10 MG PO HS, (Reported) Prazosin HCl 1 Mg Capsule, 3 MG PO HS, (Reported) Ropinirole HCl 2 Mg Tablet, 2 MG PO TID, (Reported) Simethicone 80 Mg Tab.chew, 80 MG PO TID PRN for INDIGESTION Prescribed by: BETTY TERRELL on 12/31/171617 Topiramate 100 Mg Tablet, 100 MG PO BID, (Reported) Tramadol HCl 50 Mg Tablet, 50 MG PO DAILY PRN for HEADACHE, (Reported) Patient Home Medication List Home Medication List Reviewed: Yes BETTY TERRELL DO Dec 31, 2017 10:23
--- NOTE | 2017-12-31 10:44 | Progress Note-Pre Operative ---
Pre-Operative Progress Note H&P Reviewed The H&P was reviewed, patient examined and no changes noted. Date Seen by Provider: Dec 31, 2017 Time Seen by Provider: 07:25 Date H&P Reviewed: Dec 31, 2017 Time H&P Reviewed: 07:20 Pre-Operative Diagnosis: chronic pelvic pain, endometriosis, menorrhagia BETTY TERRELL DO Dec 31, 2017 10:44
[2017-12-31] MEDS ORDERED: ONDANSETRON 4 MG/2 ML (SDV) Z0FRAN IVP PRN (10:45)
[2017-12-31] MEDS ORDERED: morphine INJ 10 MG/ML 1ML (SYR OR VIAL) ONE (10:45)
[2017-12-31] MEDS ORDERED: MEPERIDINE (DEMEROL) INJ 50 MG/ML IVP PRN (10:45)
[2017-12-31] MEDS ORDERED: RT-ALBUTEROL SULF 2.5 MG/3 ML PRE-MIX VIAL ONE (10:47)
[2017-12-31] MEDS: morphine INJ 10 MG/ML 1ML (SYR OR VIAL) IVP PRN ×2 (10:47→11:00)
[2017-12-31] MEDS ORDERED: RT-ALBUTEROL SULF 2.5 MG/3 ML PRE-MIX VIAL INH ONE (11:15)
[2017-12-31] MEDS ORDERED: KETOROLAC 30 MG/ML VIAL ONE (11:46)
[2017-12-31 11:53] VITALS: BP 145/95
[2017-12-31] MEDS: LACTATED RINGERS 1,000 ML IV SCH ×2 (11:53→16:50)
[2017-12-31] MEDS ORDERED: SIME80TA16 PO (16:18)
[2017-12-31] MEDS ORDERED: DOCU100C37 PO (16:18)
[2017-12-31] MEDS ORDERED: IBUP-844 PO (16:18)
[2017-12-31] MEDS ORDERED: HYDR-34 PO (16:18)
[2017-12-31] MEDS ORDERED: MAG30ORA2 PO (16:18)
--- NOTE | 2017-12-31 16:24 | Discharge Inst-Women's Service ---
Discharge Inst-Women's Serv Depart Medication/Instructions New, Converted or Re-Newed RX: RX on Chart Instructions catheter care. Leave in place for 1 week and then remove Final Diagnosis chronic pelvic pain history of endometriosis enteropelvic adhesions menorrhagia ovarian cyst, benign RaTH, bilateral salpingectomy, incidental cystotomy, left ovarian cystectomy Consults/Follow Up Additional Follow Up: Yes (1 week for exam and to remove catheter. Please schedule with Rahel on a morning visit. 10-12 weeks with Ignacio) Activity Activity: Activity as Tolerated Driving Instructions: No Driving for 1 Week NO SMOKING: NO SMOKING Nothing Inside Vagina: No Douching, No [place], No Tampons Diet Discharge Diet: No Restrictions Symptoms to Report to : Bleeding Excessive, Pain Increased, Fever Over 101 Degrees F, Vaginal Bleeding Increase, Cramps in Feet or Legs, Vaginal Discharge Foul For Any Problems or Questions: Contact Your Physician Skin/Wound Care Infection Signs and Symptoms: Increased Redness, Foul Odor of Wound, Increased Drainage, Skin Itchy or Has a Rash, Increased Swelling, Temperature Above 101 F Operative Area Clean and Dry: You May Remove Bandage (remove in 3 days or if soiled or wet) Stitches/[place]/Dermabond: Dermabond Bathing Instructions: BETTY Nichols DO Dec 31, 2017 16:24
[2017-12-31 16:33] VITALS: BP 107/65
[2018-01-01] MEDS ORDERED: IBUPROFEN 600 MG (MOTRIN) TAB PO PRN (03:00)
--- NOTE | 2018-01-01 07:52 | Anesthesia-General Post-Op ---
General Patient Condition Mental Status/LOC: Same as Preop Cardiovascular: Satisfactory Nausea/Vomiting: Absent Respiratory: Satisfactory Pain: Controlled Complications: Absent Post Op Complications Complications None Follow Up Care/Instructions Patient Instructions None needed. Anesthesia/Patient Condition Patient Condition Patient is doing well, no complaints, stable vital signs, no apparent adverse anesthesia problems. No complications reported per nursing. ZHANE CHRISTENSEN CRNA Jan 01, 2018 07:52
== END 2017-12-31 18:55 | disposition home or self-care (01) ==
LOC: SDC 06:05 → WS 11:30 → SDC 18:55
PROVIDERS: ATTEND Obstetrics & Gynecology
DX: N92.0 Excessive and frequent menstruation with regular cycle (principal); N80.0 Endometriosis of uterus; N83.02 Follicular cyst of left ovary; N83.8 Other noninflammatory disorders of ovary, fallopian tube and broad ligament; N85.4 Malposition of uterus; N73.6 Female pelvic peritoneal adhesions (postinfective); N99.71 Accidental puncture and laceration of a genitourinary system organ or structure during a genitourinary system procedure; R73.03 Prediabetes; I10 Essential (primary) hypertension; I20.9 Angina pectoris, unspecified; J45.909 Unspecified asthma, uncomplicated; I69.311 Memory deficit following cerebral infarction; I69.328 Other speech and language deficits following cerebral infarction; Z79.899 Other long term (current) drug therapy
CPT/HCPCS: 82962; 84703; 86850; 86900; 86901; 94664

== ENCOUNTER 2018-10-01 19:39 | Outpatient (CLI) | payer MEDICAID ==
[~2018-10-01 19:39] MED LIST changes: +DOCU100C37 PO; +HYDR-34 PO; +IBUP-844 PO; +MAG30ORA2 PO; +SIME80TA16 PO
== END 2018-10-02 06:51 | disposition home or self-care (01) ==
LOC: SLEEP 19:39
PROVIDERS: ATTEND Nurse Practitioner Family
DX: G47.30 Sleep apnea, unspecified (principal); J45.909 Unspecified asthma, uncomplicated; R06.00 Dyspnea, unspecified; Z72.0 Tobacco use
CPT/HCPCS: 95810

== ENCOUNTER → 2018-11-14 | Outpatient (CLI) | payer MEDICAID ==
[~2018-11-14] MED LIST changes: +RT-ALBUTEROL SULF 2.5 MG/3 ML PRE-MIX VIAL INH ONE; +RT-ALBUTEROL SULF 2.5 MG/3 ML PRE-MIX VIAL ONE
[2018-11-14 09:25] LABS: BUN/CREATININE RATIO 11; CREATININE SERUM 0.76 MG/DL (0.60-1.30); GFR ESTIMATED > 60
== END ==
LOC: RT 08:53
PROVIDERS: ATTEND Nurse Practitioner Family
DX: J45.909 Unspecified asthma, uncomplicated (principal); R06.00 Dyspnea, unspecified; G47.10 Hypersomnia, unspecified; Z72.0 Tobacco use
CPT/HCPCS: 36415; 82565; 84520; 94060; 94726; 94729

== ENCOUNTER → 2019-01-20 | Outpatient (CLI) | payer MEDICAID ==
[~2019-01-20] MED LIST changes: -DULO60CA58 PO; +DULO60CA59 PO; +HOLD METFORMIN - RECEIVED CONTRAST 20 ML VIAL IV SCH; +IOHEXOL 350 MG/ML 150 ML (OMNIPAQUE 350) VIAL IV ONE; +NS 100 ML (IVPB) BAG IV ONE; -RT-ALBUTEROL SULF 2.5 MG/3 ML PRE-MIX VIAL INH ONE; -RT-ALBUTEROL SULF 2.5 MG/3 ML PRE-MIX VIAL ONE
--- NOTE | 2019-01-20 11:56 | Diagnostic Imaging Report ---
PROCEDURE: CT angiography of the chest with contrast. TECHNIQUE: Multiple contiguous axial images were obtained through the chest after uneventful bolus administration of intravenous contrast. 3D reconstructed CTA MIP acquisitions were also performed. Auto Exposure Controls were utilized during the CT exam to meet ALARA standards for radiation dose reduction. INDICATION: History of asthma with increasing bilateral seasonal allergies this year. Shortness of air. COMPARISON: None FINDINGS: No significant of the pulmonary artery filling defect reflect pulmonary embolism. The heart size is unremarkable. Trace pericardial effusion. Thoracic aorta normal in contour. Normal three-vessel branching pattern at the aortic arch. Thyroid gland enlargement with nodular low-density masses of the right lobe. No abnormally enlarged mediastinal lymph nodes. The lung ribeiro are clear of infiltrate. No significant pleural effusion. Several small gallstones are present. Accessory bilateral renal arteries. The visualized osseous structures demonstrate no acute findings. IMPRESSION: 1. No CT evidence for pulmonary embolism. Negative acute MT the chest. 2. Thyroid gland enlargement asymmetric nodularity the right lobe. 3. Cholelithiasis with small gallstones. Dictated by: Dictated on workstation # [id number]
== END ==
LOC: RAD 10:39
PROVIDERS: ATTEND Nurse Practitioner Family
DX: K80.20 Calculus of gallbladder without cholecystitis without obstruction (principal); J45.909 Unspecified asthma, uncomplicated; E04.9 Nontoxic goiter, unspecified; G47.34 Idiopathic sleep related nonobstructive alveolar hypoventilation; G47.10 Hypersomnia, unspecified; Z72.0 Tobacco use
CPT/HCPCS: 71275

== ENCOUNTER → 2019-04-09 | Outpatient (CLI) | payer MEDICAID ==
[~2019-04-09] MED LIST changes: -HOLD METFORMIN - RECEIVED CONTRAST 20 ML VIAL IV SCH; -IOHEXOL 350 MG/ML 150 ML (OMNIPAQUE 350) VIAL IV ONE; -NS 100 ML (IVPB) BAG IV ONE
--- NOTE | 2019-04-09 08:30 | Diagnostic Imaging Report ---
INDICATION: Routine screening. No prior mammograms are available for comparison. This is a baseline study. 2-D and 3-D bilateral screening mammography was performed with CAD. The current study was also evaluated with a Computer Aided Detection (CAD) system. 3-D tomosynthesis was also performed and reviewed. Both breasts are heterogeneously dense, limiting the sensitivity of mammography. Tiny circumscribed nodules in both breasts are noted which appear benign. No spiculated mass or malignant appearing microcalcifications are seen. The axillae are unremarkable. IMPRESSION: No mammographic features suspicious for malignancy are identified. ACR BI-RADS Category 2: Benign findings. Result letter will be mailed to the patient. Note: At least 10% of breast cancer is not imaged by mammography. Dictated by: Dictated on workstation # [id number]
== END ==
LOC: RAD 07:33
PROVIDERS: ATTEND Obstetrics & Gynecology
DX: Z12.31 Encounter for screening mammogram for malignant neoplasm of breast (principal)
CPT/HCPCS: 77067

== ENCOUNTER → 2020-10-27 | Outpatient (CLI) | payer MEDICAID ==
[~2020-10-27] MED LIST changes: -MONT10TA24 PO; +MONT10TA32 PO; -ROPI2TAB4 PO; +ROPI2TAB6 PO; -TRAM50TA2 PO; +TRM50T PO
[2020-10-27 14:36] LABS: HEMATOCRIT 46 % (35-52); HEMOGLOBIN 16.2 g/dL (11.5-16.0); MEAN CORPUSCULAR HEMOGLOBIN 31 pg (25-34); MEAN CORPUSCULAR HGB CONC 35 g/dL (32-36); MEAN CORPUSCULAR VOLUME 88 fL (80-99); MEAN PLATELET VOLUME 10.4 fL (9.0-12.2); PLATELET COUNT 306 10^3/uL (130-400); WHITE BLOOD COUNT 11.9 10^3/uL (4.3-11.0)
[2020-10-27 14:46] LABS: ALBUMIN 4.2 GM/DL (3.2-4.5)
[2020-10-27 14:47] LABS: CHLORIDE 105 MMOL/L (98-107); SODIUM 137 MMOL/L (135-145)
[2020-10-27 14:48] LABS: CALCIUM 9.6 MG/DL (8.5-10.1)
[2020-10-27 14:49] LABS: GLUCOSE 106 MG/DL (70-105); TOTAL PROTEIN 7.7 GM/DL (6.4-8.2)
[2020-10-27 14:50] LABS: CARBON DIOXIDE 18 MMOL/L (21-32)
[2020-10-27 14:51] LABS: BILIRUBIN,TOTAL 0.4 MG/DL (0.1-1.0)
[2020-10-27 14:52] LABS: ALKALINE PHOSPHATASE 98 U/L (40-136)
[2020-10-27 14:53] LABS: CREATININE SERUM 0.83 MG/DL (0.60-1.30); GFR ESTIMATED > 60
[2020-10-27 14:54] LABS: BUN/CREATININE RATIO 14
[2020-10-27 14:56] LABS: ALANINE AMINOTRANSFERASE 49 U/L (0-55)
[2020-10-27 15:16] LABS: FREE T4 (FREE THYROXINE) 0.99 NG/DL (0.70-1.48)
--- NOTE | 2020-10-27 16:26 | Diagnostic Imaging Report ---
EXAMINATION: US Thyroid. TECHNIQUE: Multiple real-time grayscale images were obtained of the thyroid in various projections. HISTORY: NONTOXIC SINGLE THYROID NODULE COMPARISON: Thyroid ultrasound 07/19/2017 FINDINGS: The right lobe of the thyroid measures 5.3 x 2.4 x 2.4 cm. Stable size and appearance of a 3.9 cm mixed solid and cystic, isoechoic, wider than tall nodule with smooth margins. Additional smaller solid nodule measuring 1.6 cm. The left lobe of the thyroid measures 4.8 x 1.9 x 2.4 cm. There are 2 solid, isoechoic, wider than tall nodule with smooth margins within the left lobe of the thyroid gland which are minimally increased from prior exam, measuring 2.1 cm in greatest dimension. The isthmus is heterogeneous and increased in thickness and measures 0.7 cm. No suspicious adenopathy within the visualized neck. IMPRESSION: 1. Stable 3.9 cm mixed solid and cystic right thyroid nodule, TI-RADS 2. This nodule has previously been biopsied. Recommend correlation with pathology. 2. A slightly increased size of 2 solid nodules within the left lobe of thyroid gland, TI-RADS 3. TIRADS 1: Benign No FNA or follow-up required TIRADS 2: Not Suspicious No FNA or follow-up required TIRADS 3: Mildly Suspicious FNA if ? 2.5 cm Follow if ? 1.5 cm (At 1, 3 and 5 years from initial scan) TIRADS 4: Moderately Suspicious FNA if ? 1.5 cm Follow if ? 1 cm (At 1, 2, 3 and 5 years from initial scan) TIRADS 5: Highly Suspicious FNA if ? 1 cm Follow if ? 0.5 cm (Annually for 5 years from initial scan) Dictated by: Dictated on workstation # [id number]
== END ==
LOC: RAD 14:23
PROVIDERS: ATTEND Internal Medicine Cardiovascular Disease
DX: E04.2 Nontoxic multinodular goiter (principal)
CPT/HCPCS: 36415; 76536; 80053; 84439; 84443; 84481; 85027

== ENCOUNTER → 2021-11-22 | Outpatient (CLI) | payer MEDICAID ==
[~2021-11-22] MED LIST changes: +MONT-40 PO; -MONT10TA32 PO; +RT-ALBUTEROL SULF 2.5 MG/3 ML PRE-MIX VIAL INH ONE
== END ==
LOC: RT 08:00
PROVIDERS: ATTEND Nurse Practitioner Family
DX: J45.30 Mild persistent asthma, uncomplicated (principal)
CPT/HCPCS: 94060; 94726; 94729

== ENCOUNTER → 2022-01-11 | Outpatient (CLI) | payer MEDICAID ==
[~2022-01-11] MED LIST changes: -RT-ALBUTEROL SULF 2.5 MG/3 ML PRE-MIX VIAL INH ONE
--- NOTE | 2022-01-11 12:54 | Diagnostic Imaging Report ---
PROCEDURE: US Thyroid. TECHNIQUE: Multiple real-time grayscale images were obtained of the thyroid in various projections. INDICATION: Thyroid nodule COMPARISON: 10/27/2020 and 07/19/2017 FINDINGS: The right lobe of thyroid gland is enlarged measuring 5.5 x 2.4 x 2.5 cm. A solid isoechoic wider than tall nodule with smooth circumscribed margins is seen within the mid right thyroid lobe measuring 1.7 x 1.1 x 1.5 cm, not significantly changed from the prior examinations. An additional 2.4 x 2.2 x 2.1 cm mixed solid and cystic nodule is again seen within the mid inferior pole of the right thyroid lobe. This has slightly decreased in size since the prior examination with the cystic component having predominantly decreased in size from the prior exam. No new right thyroid nodules. The left lobe of thyroid gland measures 4.2 x 2.1 x 2.6 cm. An ovoid solid isoechoic nodule with smooth circumscribed margins is seen within the mid left thyroid lobe measuring 1.6 x 1.5 x 1.4 cm, appearing stable to slightly decreased in size since the prior examination. Additional 1.4 x 1.4 cm solid isoechoic nodule with circumscribed margins is seen within the mid left thyroid lobe, appearing stable to decreased in size from the prior examination. No new left thyroid nodules. The isthmus is unremarkable. IMPRESSION: Bilateral thyroid nodules as described above, not significantly changed since the prior examination. Ti RADS 3 nodules within the left thyroid lobe measuring up to 1.6 cm, appearing stable to slightly decreased in size from the prior examination. No new thyroid nodules. Follow-up ultrasound in 2 years is recommended to ensure stability. Dictated by: Dictated on workstation # [id number]
== END ==
LOC: RAD 08:00
PROVIDERS: ATTEND Nurse Practitioner Family
DX: E04.2 Nontoxic multinodular goiter (principal)
CPT/HCPCS: 76536

== ENCOUNTER → 2022-04-23 | Outpatient (CLI) | payer MEDICAID ==
[2022-04-23 09:39] LABS: ALANINE AMINOTRANSFERASE 47 U/L (0-55); ALBUMIN 4.2 GM/DL (3.2-4.5); ALKALINE PHOSPHATASE 115 U/L (40-136); BILIRUBIN,TOTAL 0.3 MG/DL (0.1-1.0); BUN/CREATININE RATIO 11; CALCIUM 9.7 MG/DL (8.5-10.1); CARBON DIOXIDE 23 MMOL/L (21-32); CHLORIDE 104 MMOL/L (98-107); CHOLESTEROL 224 MG/DL (< 200); CREATININE SERUM 0.83 MG/DL (0.60-1.30); GFR ESTIMATED 89; GLUCOSE 115 MG/DL (70-105); HDL CHOLESTEROL 31 MG/DL (40-60); POTASSIUM 3.7 MMOL/L (3.6-5.0); SODIUM 139 MMOL/L (135-145); TOTAL PROTEIN 7.8 GM/DL (6.4-8.2); TRIGLYCERIDES 563 MG/DL (<150)
== END ==
LOC: LAB 08:58
PROVIDERS: ATTEND Internal Medicine Cardiovascular Disease
DX: E78.2 Mixed hyperlipidemia (principal)
CPT/HCPCS: 36415; 80053; 80061

== ENCOUNTER → 2022-04-25 | Outpatient (CLI) | payer MEDICAID | END | disposition home or self-care (01) | LOC: PREOP 05:41 | PROVIDERS: ATTEND Surgery | DX: Z01.818 Encounter for other preprocedural examination (principal) ==